=== PATIENT | male | born 1935 | race Caucasian/White ===

== ENCOUNTER 2018-02-07 09:59 | Emergency (ER) | payer MEDICARE, OTHER ==
[~2018-02-07] VITALS: Ht 180.3 cm; Wt 82.9 kg
[2018-02-07] MEDS ORDERED: lactulose 20gm/30ml cup PO ONE (11:05)
[2018-02-07] MEDS ORDERED: magnesium 2GM in 50ml NS 50 ML IV ONE ×2 (11:05→12:27)
[2018-02-07] MEDS ORDERED: potassium Cl 20 mEq SR tablet PO STA (11:05)
[2018-02-07] MEDS ORDERED: magnesium hydroxide 30ml (MOM) UD suspension PO ONE (11:05)
[2018-02-07] MEDS ORDERED: normal saline 1000ML IV soln IVB ONE (11:05)
[2018-02-07] MEDS ORDERED: lactulose 20gm/30ml cup ONE (11:17)
[2018-02-07] MEDS ORDERED: magnesium hydroxide 30ml (MOM) UD suspension ONE (11:18)
[2018-02-07] MEDS ORDERED: potassium Cl 20 mEq SR tablet ONE ×2 (11:18)
[2018-02-07] MEDS ORDERED: bisacodyl 5mg tablet.DR PO ONE (11:20)
[2018-02-07 11:45] LABS: BASOPHILS % (AUTO) 0.7 % (0-1); EOSINOPHILS # (AUTO) 0.2 X10'3 (0-0.9); EOSINOPHILS % (AUTO) 3.5 % (0-6); HEMATOCRIT 39.2 % (42.0-52.0); HEMOGLOBIN 13.3 g/dl (14.0-17.9); LYMPHOCYTES % (AUTO) 38.4 % (21-51); MEAN CORPUSCULAR HEMOGLOBIN 30.6 PG (27.0-31.0); MEAN CORPUSCULAR HGB CONC 34.1 % (33.0-36.5); MEAN CORPUSCULAR VOLUME 89.9 FL (78-98); MEAN PLATELET VOLUME 7.6 FL (7.4-10.4); MONOCYTES # (AUTO) 0.4 X10'3 (0-0.9); MONOCYTES % (AUTO) 7.1 % (2-12); NEUTROPHILS # (AUTO) 2.7 X10'3 (1.8-7.7); NEUTROPHILS % (AUTO) 50.3 % (42-75); PLATELET COUNT 219 X10'3 (140-440); RED BLOOD COUNT 4.36 X10'6 (4.70-6.10); RED CELL DISTRIBUTION WIDTH 14.8 % (11.5-14.5); WHITE BLOOD COUNT 5.3 X10'3 (4.5-11.0)
[2018-02-07 12:01] LABS: ALANINE AMINOTRANSFERASE 11 U/L (12-78); ALBUMIN 3.6 G/DL (3.4-5.0); ALBUMIN/GLOBULIN RATIO 1.1 (1.1-1.5); ALKALINE PHOSPHATASE 57 IU/L (46-116); ANION GAP 7 (8-16); ASPARTATE AMINO TRANSFERASE 14 U/L (10-37); BILIRUBIN,TOTAL 0.5 MG/DL (0.1-1.0); BLOOD UREA NITROGEN 13 MG/DL (7-18); BUN/CREATININE RATIO 13.8 (5.4-32.0); CALCIUM 8.7 MG/DL (8.5-10.1); CHLORIDE 105 MMOL/L (99-107); CREATININE 0.94 MG/DL (0.60-1.10); GLUCOSE 125 MG/DL (70-104); POTASSIUM 4.6 MMOL/L (3.5-5.1); SODIUM 140 MMOL/L (135-145); TOTAL CARBON DIOXIDE 27.8 MMOL/L (24-32); TOTAL PROTEIN 6.9 G/DL (6.4-8.2); eGFR 76 ML/MIN
[2018-02-07 12:31] VITALS: BP 127/81
[2018-02-07] MEDS ORDERED: LACT10SO PO (14:34)
== END 2018-02-07 14:40 | disposition home or self-care (01) ==
LOC: ER 10:00
DX: K59.00 Constipation, unspecified (principal); J44.9 Chronic obstructive pulmonary disease, unspecified; E11.9 Type 2 diabetes mellitus without complications; G89.29 Other chronic pain; Z60.2 Problems related to living alone; Z88.5 Allergy status to narcotic agent; Z88.8 Allergy status to other drugs, medicaments and biological substances
CPT/HCPCS: 36415; 80053; 85025; 96365; 99284; J3475; J7030

== ENCOUNTER 2018-10-04 18:22 | Emergency (ER) | payer MEDICARE, OTHER ==
[~2018-10-04] VITALS: Ht 180.3 cm; Wt 70.0 kg
[~2018-10-04 18:22] MED LIST: LACT10SO PO
[2018-10-04] MEDS ORDERED: normal saline 1000ML IV soln IVB ONE ×2 (18:35→20:15)
[2018-10-04] MEDS ORDERED: LIDOcaine 2% 10ml TOPICAL JELLY (Urojet) MM ONE (18:35)
--- NOTE | 2018-10-04 19:07 | NUR ---
PA REQUESTED BLADDER TO BE SCANNED AFTER BARBA CATH INITIATIN, SCANNED 42 mL IN BLADDER, PA NOTIFIED
[2018-10-04 19:16] LABS: BASOPHILS # (AUTO) 0.1 X10'3 (0-0.2); BASOPHILS % (AUTO) 0.6 % (0-1); EOSINOPHILS # (AUTO) 0.1 X10'3 (0-0.9); EOSINOPHILS % (AUTO) 1.5 % (0-6); HEMATOCRIT 43.9 % (42.0-52.0); HEMOGLOBIN 14.4 g/dl (14.0-17.9); LYMPHOCYTES # (AUTO) 1.8 X10'3 (1.1-4.8); MEAN CORPUSCULAR HEMOGLOBIN 31.2 PG (27.0-31.0); MEAN CORPUSCULAR HGB CONC 32.8 % (33.0-36.5); MEAN CORPUSCULAR VOLUME 95.1 FL (78-98); MEAN PLATELET VOLUME 8.5 FL (7.4-10.4); MONOCYTES # (AUTO) 0.6 X10'3 (0-0.9); MONOCYTES % (AUTO) 7.1 % (2-12); NEUTROPHILS # (AUTO) 6.1 X10'3 (1.8-7.7); NEUTROPHILS % (AUTO) 69.8 % (42-75); PLATELET COUNT 253 X10'3 (140-440); RED BLOOD COUNT 4.62 X10'6 (4.70-6.10); RED CELL DISTRIBUTION WIDTH 13.6 % (11.5-14.5); WHITE BLOOD COUNT 8.7 X10'3 (4.5-11.0)
[2018-10-04 19:26] LABS: ALANINE AMINOTRANSFERASE 23 U/L (12-78); ALBUMIN 3.8 G/DL (3.4-5.0); ALBUMIN/GLOBULIN RATIO 1.1 (1.1-1.5); ALKALINE PHOSPHATASE 60 IU/L (46-116); ANION GAP 11 (8-16); ASPARTATE AMINO TRANSFERASE 16 U/L (10-37); BILIRUBIN,TOTAL 0.7 MG/DL (0.1-1.0); BLOOD UREA NITROGEN 16 MG/DL (7-18); BUN/CREATININE RATIO 16.8 (5.4-32.0); CHLORIDE 105 MMOL/L (99-107); CREATININE 0.95 MG/DL (0.60-1.10); GLUCOSE 129 MG/DL (70-104); POTASSIUM 4.2 MMOL/L (3.5-5.1); SODIUM 142 MMOL/L (135-145); TOTAL CARBON DIOXIDE 25.6 MMOL/L (24-32); TOTAL PROTEIN 7.2 G/DL (6.4-8.2); eGFR 75 ML/MIN
[2018-10-04 19:44] LABS: CLARITY,URINE CLEAR (Clear); COLOR,URINE YELLOW (Yellow); GLUCOSE, URINE NEGATIVE (Neg); KETONES,URINE TRACE mg/dl (Neg); LEUKOCYTE ESTERASE ,URINE NEGATIVE (Neg); NITRITES, URINE NEGATIVE (Neg); OCCULT BLOOD,URINE NEGATIVE (Neg); PH,URINE 5.5 (4.8-8.0); PROTEIN,URINE NEGATIVE (Neg)
[2018-10-04 19:46] LABS: UA COLLECTION TYPE FOLEY CATH
[2018-10-04] MEDS ORDERED: bisacodyl 10mg suppository rectal RC STA (20:14)
[2018-10-04] MEDS ORDERED: lactulose 20gm/30ml cup PO ONE (20:15)
[2018-10-04] MEDS ORDERED: FLO0.4C PO (20:16)
[2018-10-04 21:32] VITALS: BP 149/83
== END 2018-10-04 21:33 | disposition home or self-care (01) ==
LOC: ER 18:22
DX: R33.9 Retention of urine, unspecified (principal); K59.00 Constipation, unspecified; R60.0 Localized edema; J44.9 Chronic obstructive pulmonary disease, unspecified; E11.9 Type 2 diabetes mellitus without complications; G89.29 Other chronic pain; Z88.6 Allergy status to analgesic agent; Z88.5 Allergy status to narcotic agent; Z79.899 Other long term (current) drug therapy
CPT/HCPCS: 36415; 51702; 74018; 80053; 81003; 85025; 99284; J7030

== ENCOUNTER 2018-10-08 13:34 | Emergency (ER) | payer MEDICARE, OTHER ==
[~2018-10-08 13:34] MED LIST changes: +FLO0.4C PO
== END 2018-10-08 16:02 | disposition left against medical advice (07) ==
LOC: ER 13:34
DX: Z00.8 Encounter for other general examination (principal); Z53.21 Procedure and treatment not carried out due to patient leaving prior to being seen by health care provider

== ENCOUNTER 2018-10-14 15:42 | Inpatient (IN) | payer MEDICARE, OTHER ==
[~2018-10-14] VITALS: Ht 180.3 cm; Wt 81.8 kg
[2018-10-14 16:18] LABS: BASOPHILS % (AUTO) 0.2 % (0-1); EOSINOPHILS # (AUTO) 0.1 X10'3 (0-0.9); EOSINOPHILS % (AUTO) 1.1 % (0-6); HEMATOCRIT 40.2 % (42.0-52.0); HEMOGLOBIN 13.5 g/dl (14.0-17.9); LYMPHOCYTES # (AUTO) 1.5 X10'3 (1.1-4.8); LYMPHOCYTES % (AUTO) 14.6 % (21-51); MEAN CORPUSCULAR HEMOGLOBIN 32.1 PG (27.0-31.0); MEAN CORPUSCULAR HGB CONC 33.6 % (33.0-36.5); MEAN CORPUSCULAR VOLUME 95.6 FL (78-98); MEAN PLATELET VOLUME 7.7 FL (7.4-10.4); MONOCYTES # (AUTO) 0.9 X10'3 (0-0.9); MONOCYTES % (AUTO) 8.7 % (2-12); NEUTROPHILS # (AUTO) 7.9 X10'3 (1.8-7.7); NEUTROPHILS % (AUTO) 75.4 % (42-75); PLATELET COUNT 213 X10'3 (140-440); RED BLOOD COUNT 4.21 X10'6 (4.70-6.10); RED CELL DISTRIBUTION WIDTH 14.7 % (11.5-14.5); WHITE BLOOD COUNT 10.5 X10'3 (4.5-11.0)
[2018-10-14 16:34] LABS: ALANINE AMINOTRANSFERASE 12 U/L (12-78); ALBUMIN 3.6 G/DL (3.4-5.0); ALBUMIN/GLOBULIN RATIO 1.1 (1.1-1.5); ALKALINE PHOSPHATASE 54 IU/L (46-116); ANION GAP 10 (8-16); ASPARTATE AMINO TRANSFERASE 20 U/L (10-37); BILIRUBIN,TOTAL 1.1 MG/DL (0.1-1.0); BLOOD UREA NITROGEN 13 MG/DL (7-18); BUN/CREATININE RATIO 12.6 (5.4-32.0); CALCIUM 8.3 MG/DL (8.5-10.1); CHLORIDE 101 MMOL/L (99-107); CREATININE 1.03 MG/DL (0.60-1.10); GLUCOSE 133 MG/DL (70-104); POTASSIUM 3.6 MMOL/L (3.5-5.1); SODIUM 139 MMOL/L (135-145); TOTAL CARBON DIOXIDE 27.7 MMOL/L (24-32); TOTAL PROTEIN 6.9 G/DL (6.4-8.2); eGFR 69 ML/MIN
[2018-10-14 16:35] LABS: INR 1.1 INR; PARTIAL THROMBOPLASTIN TIME 31 SECONDS (22-32); PROTHROMBIN TIME 11.2 SECONDS (9.0-12.0)
[2018-10-14] MEDS ORDERED: ipratropium/albuterol 3ml nebule NEB ONE (17:10)
[2018-10-14] MEDS ORDERED: CefTRIAXone 2gm/D5W 50ml 50 ML IV ONE (17:10)
[2018-10-14] MEDS ORDERED: magnesium 2GM in 50ml NS 50 ML IV PRN (17:40)
[2018-10-14] MEDS ORDERED: bisacodyl 10mg suppository rectal RC PRN (17:40)
[2018-10-14] MEDS ORDERED: potassium Cl 20 mEq SR tablet PO PRN ×2 (17:40)
[2018-10-14] MEDS ORDERED: ondansetron/PF 4mg/2ml inj IV PRN (17:40)
[2018-10-14] MEDS ORDERED: mag hydrox/Alum hydrox/simeth 30ml oral suspension PO PRN (17:40)
[2018-10-14] MEDS ORDERED: magnesium 4gm in 100ml NS 100 ML IV PRN (17:40)
[2018-10-14] MEDS ORDERED: potassium Cl 40MEQ/NS 500ml 500 ML IV PRN ×2 (17:40)
[2018-10-14] MEDS ORDERED: magnesium hydroxide 30ml (MOM) UD suspension PO PRN (17:40)
[2018-10-14] MEDS: K and/or MAG REPLACEMENT MC SCH (17:40)
[2018-10-14] MEDS ORDERED: GABA-530 PO (17:44)
[2018-10-14] MEDS ORDERED: CARB1TAB23 PO ×2 (17:44)
[2018-10-14] MEDS ORDERED: CHOL100046 PO (17:44)
[2018-10-14] MEDS ORDERED: ASPI-1264 PO (17:44)
[2018-10-14] MEDS ORDERED: FOLI0.4T2 PO (17:44)
[2018-10-14] MEDS ORDERED: FLO0.4C PO (17:44)
[2018-10-14] MEDS ORDERED: METF500T PO (17:44)
[2018-10-14] MEDS ORDERED: OMEP40CA37 PO (17:44)
[2018-10-14] MEDS ORDERED: insulin Lispro (HumaLOG) vial - multi-dose SQ SCH (17:50)
[2018-10-14] MEDS ORDERED: glucagon, human recombinant 1mg kit SUBCUT PRN (17:50)
[2018-10-14] MEDS ORDERED: MESSAGE TO PHARMACY PO ONE (17:50)
[2018-10-14] MEDS ORDERED: dextrose 50%-water 50ml dispensing syringe IV PRN ×2 (17:50)
[2018-10-14] MEDS ORDERED: dextrose ORAL solution 15 GM/59 ML bottle PO PRN ×2 (17:50)
[2018-10-14] MEDS: ipratropium/albuterol 3ml nebule NEB SCH ×2 (19:01→23:08)
[2018-10-14 19:24] LABS: HEMOGLOBIN A1C 6.6 % (4.5-6.2)
[2018-10-14] MEDS: metroNIDAZOLE-Flagyl 500mg/NS 100 ML IV SCH (19:37)
[2018-10-14] MEDS: docusate sod 100mg capsule PO SCH (20:00)
--- NOTE | 2018-10-14 20:12 | NUR ---
GOLD RING REMOVED FROM LEFT 4TH FINGER AND GIVEN TO SON DELIA
[2018-10-14] MEDS: levoFLOXACIN-Levaquin 750MG/D5 150 ML IV SCH (20:15)
[2018-10-14] MEDS: normal saline 1000ml 1,000 ML IV SCH (20:21)
[2018-10-14] MEDS ORDERED: normal saline 500ml IV soln 500 ML IV ONE (20:25)
--- NOTE | 2018-10-14 21:00 | NUR ---
PT SBP TRENDING DOWNWARD. Hospitalist notified. NS 500 mg fluid bolus and NS 75 ML maintenance.
[2018-10-14] MEDS ORDERED: normal saline 1000ml 1,000 ML IVB ONE (21:28)
--- NOTE | 2018-10-14 21:32 | NUR ---
AFTER NS 500 ML BOLUS PT SBP 89. HOSP NOTIFIED. NS 1 L BOLUS ORDERED.
[2018-10-15] MEDS: gabapentin 100mg capsule PO SCH ×3 (00:27→20:00)
[2018-10-15] MEDS: tamsulosin 0.4mg capsule PO SCH ×2 (00:27→20:00)
[2018-10-15] MEDS: aspirin 325mg tablet PO SCH ×2 (00:27→20:00)
[2018-10-15] MEDS: metroNIDAZOLE-Flagyl 500mg/NS 100 ML IV SCH ×2 (00:28→07:48)
[2018-10-15] MEDS: diatr meglu/diatrizoate 30ml oral sol.-(3 dose) bottle PO SCH ×2 (00:28→07:48)
[2018-10-15] MEDS: carbidoba-levodopa 25-100mg tablet PO SCH ×4 (00:28→20:01)
--- NOTE | 2018-10-15 02:07 | NUR ---
Bladder scan of 750. Pt was able to void 150 ml in urinal. Pt did not wish to have an indwelling catheter for retention but consented to straight cath. Catheter went in easily with no resistence. Catheter volume 500 ml. Post void Bladder scan 15 ml.
[2018-10-15 02:29] LABS: CLARITY,URINE CLEAR (Clear); COLOR,URINE AMBER (Yellow); GLUCOSE, URINE NEGATIVE (Neg); KETONES,URINE TRACE mg/dl (Neg); LEUKOCYTE ESTERASE ,URINE TRACE (Neg); NITRITES, URINE NEGATIVE (Neg); OCCULT BLOOD,URINE NEGATIVE (Neg); PH,URINE 5.5 (4.8-8.0); PROTEIN,URINE NEGATIVE (Neg); UROBILINOGEN,URINE 0.2 E.U/dL (0.2-1.0)
[2018-10-15 02:31] LABS: UA COLLECTION TYPE URINAL
[2018-10-15 02:39] LABS: BACTERIA,URINE FEW /HPF (Neg); MUCUS STRANDS MANY /LPF (Neg); RBC,URINE 0-2 /HPF (0-2); SQUAMOUS EPITHELIAL CELL,UR FEW /LPF (FEW)
[2018-10-15] MEDS: ipratropium/albuterol 3ml nebule NEB SCH ×6 (03:00→23:30)
--- NOTE | 2018-10-15 03:59 | NUR ---
PT REFUSED 0300 SVN TREATMENT
[2018-10-15 05:04] LABS: ALANINE AMINOTRANSFERASE 8 U/L (12-78); ALBUMIN 2.6 G/DL (3.4-5.0); ALBUMIN/GLOBULIN RATIO 0.9 (1.1-1.5); ALKALINE PHOSPHATASE 43 IU/L (46-116); ANION GAP 10 (8-16); ASPARTATE AMINO TRANSFERASE 16 U/L (10-37); BILIRUBIN,TOTAL 0.8 MG/DL (0.1-1.0); BLOOD UREA NITROGEN 11 MG/DL (7-18); BUN/CREATININE RATIO 14.7 (5.4-32.0); CALCIUM 7.5 MG/DL (8.5-10.1); CHLORIDE 104 MMOL/L (99-107); CREATININE 0.75 MG/DL (0.60-1.10); GLUCOSE 116 MG/DL (70-104); POTASSIUM 3.6 MMOL/L (3.5-5.1); SODIUM 139 MMOL/L (135-145); TOTAL CARBON DIOXIDE 25.5 MMOL/L (24-32); TOTAL PROTEIN 5.6 G/DL (6.4-8.2); eGFR > 90 ML/MIN
[2018-10-15 05:07] LABS: MAGNESIUM 1.3 MG/DL (1.5-2.4)
[2018-10-15 05:11] LABS: BASOPHILS % (AUTO) 0.2 % (0-1); EOSINOPHILS % (AUTO) 0.1 % (0-6); HEMATOCRIT 35.1 % (42.0-52.0); HEMOGLOBIN 11.9 g/dl (14.0-17.9); LYMPHOCYTES # (AUTO) 1.1 X10'3 (1.1-4.8); LYMPHOCYTES % (AUTO) 15.1 % (21-51); MEAN CORPUSCULAR HGB CONC 33.9 % (33.0-36.5); MEAN CORPUSCULAR VOLUME 94.3 FL (78-98); MEAN PLATELET VOLUME 7.9 FL (7.4-10.4); MONOCYTES # (AUTO) 0.6 X10'3 (0-0.9); MONOCYTES % (AUTO) 8.4 % (2-12); NEUTROPHILS # (AUTO) 5.4 X10'3 (1.8-7.7); NEUTROPHILS % (AUTO) 76.2 % (42-75); PLATELET COUNT 161 X10'3 (140-440); RED BLOOD COUNT 3.72 X10'6 (4.70-6.10); RED CELL DISTRIBUTION WIDTH 14.4 % (11.5-14.5); WHITE BLOOD COUNT 7.1 X10'3 (4.5-11.0)
--- NOTE | 2018-10-15 07:41 | NUR ---
SPOKE TO [place], CT, NEED TO GIVE GATROVIEW AND HAVE 3RD DOSE RETIMED.
[2018-10-15] MEDS: pantoprazole 40mg Tablet.DR PO SCH ×2 (07:48→11:27)
--- NOTE | 2018-10-15 07:54 | NUR ---
PT KNOWS GOING TO A CT SCAN SOON, AND HAS A ROOM UPSTAIRS.
[2018-10-15] MEDS ORDERED: non-formulary drug (Omeprazole (Prilosec) 1 CAP) PO SCH (08:00)
[2018-10-15] MEDS: K and/or MAG REPLACEMENT MC SCH (08:00)
[2018-10-15] MEDS: normal saline 1000ml 1,000 ML IV SCH (09:41)
[2018-10-15 10:00] VITALS: BP 85/49
[2018-10-15] MEDS: vitamin D (cholecalciferol) 1,000 unit tablet PO SCH (11:23)
[2018-10-15] MEDS: docusate sod 100mg capsule PO SCH ×2 (11:27→20:00)
[2018-10-15] MEDS: levoFLOXACIN-Levaquin 750MG/D5 150 ML IV SCH (11:28)
[2018-10-15] MEDS: folic acid 0.4mg tablet PO SCH (11:28)
[2018-10-15] MEDS: enoxaparin 40mg/0.4ml syringe SUBCUT SCH (15:56)
[2018-10-15] MEDS: metroNIDAZOLE 500mg tablet PO SCH (17:46)
[2018-10-15] MEDS: magnesium Cl slow-release 64mg tablet PO PRN (17:46)
[2018-10-15 18:30] VITALS: BP 140/84
[2018-10-15] MEDS: Potassium Cl inj 20 MEQ in normal saline 1000ml 1,000 ML IV SCH (20:01)
[2018-10-15 22:00] VITALS: BP 100/54
[2018-10-16] MEDS: metroNIDAZOLE 500mg tablet PO SCH ×2 (00:41→08:59)
[2018-10-16] MEDS: magnesium Cl slow-release 64mg tablet PO PRN (00:41)
[2018-10-16] MEDS: ipratropium/albuterol 3ml nebule NEB SCH ×6 (03:00→23:31)
[2018-10-16 06:00] VITALS: BP 158/83
[2018-10-16 07:03] LABS: ALANINE AMINOTRANSFERASE 6 U/L (12-78); ALBUMIN 2.8 G/DL (3.4-5.0); ALBUMIN/GLOBULIN RATIO 0.9 (1.1-1.5); ALKALINE PHOSPHATASE 47 IU/L (46-116); ANION GAP 10 (8-16); ASPARTATE AMINO TRANSFERASE 19 U/L (10-37); BILIRUBIN,TOTAL 0.6 MG/DL (0.1-1.0); BLOOD UREA NITROGEN 9 MG/DL (7-18); BUN/CREATININE RATIO 10.1 (5.4-32.0); CHLORIDE 107 MMOL/L (99-107); CREATININE 0.89 MG/DL (0.60-1.10); GLUCOSE 123 MG/DL (70-104); MAGNESIUM 1.5 MG/DL (1.5-2.4); POTASSIUM 3.8 MMOL/L (3.5-5.1); SODIUM 140 MMOL/L (135-145); TOTAL CARBON DIOXIDE 22.6 MMOL/L (24-32); eGFR 81 ML/MIN
[2018-10-16] MEDS: K and/or MAG REPLACEMENT MC SCH (08:00)
[2018-10-16] MEDS: docusate sod 100mg capsule PO SCH ×2 (08:00→19:38)
[2018-10-16] MEDS: Potassium Cl inj 20 MEQ in normal saline 1000ml 1,000 ML IV SCH (08:53)
[2018-10-16] MEDS: carbidoba-levodopa 25-100mg tablet PO SCH ×3 (08:59→19:39)
[2018-10-16] MEDS: vitamin D (cholecalciferol) 1,000 unit tablet PO SCH (08:59)
[2018-10-16] MEDS: gabapentin 100mg capsule PO SCH ×2 (08:59→19:38)
[2018-10-16] MEDS: folic acid 0.4mg tablet PO SCH (08:59)
[2018-10-16] MEDS: enoxaparin 40mg/0.4ml syringe SUBCUT SCH (09:00)
[2018-10-16 10:00] VITALS: BP 94/54
[2018-10-16] MEDS: diatr meglu/diatrizoate 30ml oral sol.-(3 dose) bottle PO SCH (11:35)
[2018-10-16] MEDS: levoFLOXACIN 750MG TABLET PO SCH (11:38)
[2018-10-16 15:30] VITALS: BP_SYST 109; BP_SYST 113; BP_SYST 145; BP_DIAS 69; BP_DIAS 72; BP_DIAS 97
[2018-10-16 18:00] VITALS: BP 122/68
[2018-10-16] MEDS: tamsulosin 0.4mg capsule PO SCH (19:38)
[2018-10-16] MEDS: aspirin 325mg tablet PO SCH (19:38)
[2018-10-17] MEDS: ipratropium/albuterol 3ml nebule NEB SCH ×6 (03:11→23:00)
[2018-10-17 06:00] VITALS: BP 123/74
[2018-10-17 06:09] LABS: ALANINE AMINOTRANSFERASE 8 U/L (12-78); ALBUMIN 2.6 G/DL (3.4-5.0); ALBUMIN/GLOBULIN RATIO 0.9 (1.1-1.5); ALKALINE PHOSPHATASE 40 IU/L (46-116); ANION GAP 12 (8-16); ASPARTATE AMINO TRANSFERASE 14 U/L (10-37); BILIRUBIN,TOTAL 0.5 MG/DL (0.1-1.0); BLOOD UREA NITROGEN 8 MG/DL (7-18); BUN/CREATININE RATIO 8.5 (5.4-32.0); CALCIUM 7.9 MG/DL (8.5-10.1); CHLORIDE 106 MMOL/L (99-107); CREATININE 0.94 MG/DL (0.60-1.10); GLUCOSE 131 MG/DL (70-104); MAGNESIUM 1.5 MG/DL (1.5-2.4); POTASSIUM 3.7 MMOL/L (3.5-5.1); SODIUM 142 MMOL/L (135-145); TOTAL CARBON DIOXIDE 24.1 MMOL/L (24-32); TOTAL PROTEIN 5.6 G/DL (6.4-8.2); eGFR 76 ML/MIN
[2018-10-17] MEDS: K and/or MAG REPLACEMENT MC SCH (08:00)
[2018-10-17] MEDS: enoxaparin 40mg/0.4ml syringe SUBCUT SCH (09:08)
[2018-10-17] MEDS: vitamin D (cholecalciferol) 1,000 unit tablet PO SCH (09:09)
[2018-10-17] MEDS: gabapentin 100mg capsule PO SCH (09:09)
[2018-10-17] MEDS: folic acid 0.4mg tablet PO SCH (09:09)
[2018-10-17] MEDS: docusate sod 100mg capsule PO SCH ×2 (09:09→20:06)
[2018-10-17] MEDS: carbidoba-levodopa 25-100mg tablet PO SCH ×3 (09:15→20:06)
[2018-10-17 10:00] VITALS: BP 135/78
[2018-10-17] MEDS: levoFLOXACIN 750MG TABLET PO SCH (11:24)
[2018-10-17] MEDS: pantoprazole 40mg Tablet.DR PO SCH (11:25)
[2018-10-17 18:00] VITALS: BP 138/80
[2018-10-17] MEDS: aspirin 325mg tablet PO SCH (20:06)
[2018-10-17] MEDS: tamsulosin 0.4mg capsule PO SCH (20:07)
[2018-10-17] MEDS: gabapentin 300mg capsule PO SCH (20:07)
--- NOTE | 2018-10-17 21:01 | NUR ---
pt up in chair with 1 assist. watching TV
[2018-10-17 22:00] VITALS: BP 91/53
[2018-10-18] MEDS: ipratropium/albuterol 3ml nebule NEB SCH ×3 (03:48→11:00)
[2018-10-18 05:00] VITALS: BP 117/69
[2018-10-18 06:16] LABS: ALANINE AMINOTRANSFERASE 8 U/L (12-78); ALBUMIN 2.7 G/DL (3.4-5.0); ALBUMIN/GLOBULIN RATIO 0.9 (1.1-1.5); ALKALINE PHOSPHATASE 42 IU/L (46-116); ANION GAP 10 (8-16); ASPARTATE AMINO TRANSFERASE 17 U/L (10-37); BILIRUBIN,TOTAL 0.5 MG/DL (0.1-1.0); BLOOD UREA NITROGEN 9 MG/DL (7-18); BUN/CREATININE RATIO 11.3 (5.4-32.0); CALCIUM 8.2 MG/DL (8.5-10.1); CHLORIDE 107 MMOL/L (99-107); GLUCOSE 122 MG/DL (70-104); MAGNESIUM 1.5 MG/DL (1.5-2.4); POTASSIUM 3.9 MMOL/L (3.5-5.1); SODIUM 142 MMOL/L (135-145); TOTAL CARBON DIOXIDE 24.9 MMOL/L (24-32); TOTAL PROTEIN 5.7 G/DL (6.4-8.2); eGFR > 90 ML/MIN
--- NOTE | 2018-10-18 06:37 | NUR ---
reported to days. noted pt anticipates discharge to [facility] today. resting w/o distress.
--- NOTE | 2018-10-18 07:10 | NUR ---
Page to Dr. Fernandez MESSAGE: [phone] Leisa Man Critical 3.0 I will replace if there is an order Gaby [phone]
[2018-10-18] MEDS: pantoprazole 40mg Tablet.DR PO SCH (07:42)
[2018-10-18] MEDS: folic acid 0.4mg tablet PO SCH (07:42)
[2018-10-18] MEDS: carbidoba-levodopa 25-100mg tablet PO SCH ×2 (07:42→13:24)
[2018-10-18] MEDS: vitamin D (cholecalciferol) 1,000 unit tablet PO SCH (07:42)
[2018-10-18] MEDS: gabapentin 300mg capsule PO SCH (07:42)
[2018-10-18] MEDS: docusate sod 100mg capsule PO SCH (07:42)
[2018-10-18] MEDS: enoxaparin 40mg/0.4ml syringe SUBCUT SCH (07:43)
[2018-10-18] MEDS: K and/or MAG REPLACEMENT MC SCH (07:44)
[2018-10-18 11:00] VITALS: BP 92/51
--- NOTE | 2018-10-18 11:09 | NUR ---
Initial: Pt admit w/ PNA, COPD exacerbation, hx dementia. PO 100% carb controlled diet meeting needs. A1C <7. LBM 10/16 on colace w/ dulcolax PRN. No nutrition concerns at this time. Will continue to monitor. Rec: 1. continue carb controlled diet 2. wt per rx Addendum: 10/18/18 at [address] Amended: Links added.
[2018-10-18] MEDS: levoFLOXACIN 750MG TABLET PO SCH (13:24)
--- NOTE | 2018-10-18 14:15 | NUR ---
Report called to Mike August.
--- NOTE | 2018-10-18 14:25 | NUR ---
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 IV taken out canulla intact. Plata left in for retention.
== END 2018-10-18 14:35 | DRG 190 ==
LOC: ER 15:43 → ED HOLD 17:39 → ORTHO 4S 10-15 08:50
PROVIDERS: ADMIT Internal Medicine; ATTEND Internal Medicine
DX: J44.0 Chronic obstructive pulmonary disease with (acute) lower respiratory infection (principal); J18.9 Pneumonia, unspecified organism; J44.1 Chronic obstructive pulmonary disease with (acute) exacerbation; E11.9 Type 2 diabetes mellitus without complications; G20 Parkinson's disease; G89.29 Other chronic pain; N40.1 Benign prostatic hyperplasia with lower urinary tract symptoms; R29.6 Repeated falls; F03.90 Unspecified dementia, unspecified severity, without behavioral disturbance, psychotic disturbance, mood disturbance, and anxiety; W18.39XA Other fall on same level, initial encounter; R29.810 Facial weakness; R33.8 Other retention of urine; M54.9 Dorsalgia, unspecified; R06.03 Acute respiratory distress; Z60.2 Problems related to living alone; Z91.81 History of falling; Z95.0 Presence of cardiac pacemaker; Z88.5 Allergy status to narcotic agent; Z79.899 Other long term (current) drug therapy; Z79.82 Long term (current) use of aspirin; Z87.891 Personal history of nicotine dependence; Y93.89 Activity, other specified; Y92.89 Other specified places as the place of occurrence of the external cause; Y99.8 Other external cause status
CPT/HCPCS: 36415; 70450; 71045; 71250; 72190; 74176; 80053; 81001; 82948; 83036; 83735; 84484; 85025; 85610; 85730; 87040; 87070; 87088; 92616; 93005; 94640; 94760; 97116; 97162; 97530; 99285; G0378; J0696; J1650; J1956; J3480; J3490; J7030; Q9963

== ENCOUNTER 2018-10-27 10:27 | Inpatient (IN) | payer MEDICARE, OTHER ==
[~2018-10-27] VITALS: Ht 180.3 cm; Wt 75.6 kg
[~2018-10-27 10:27] MED LIST changes: +ASPI-1264 PO; +CARB1TAB23 PO; +CHOL100046 PO; +FOLI0.4T2 PO; +GABA-530 PO; -LACT10SO PO; +METF500T PO; +OMEP40CA37 PO
--- NOTE | 2018-10-27 10:35 | NUR ---
PT WAS GIVEN 324 ASA BY EMS BEFORE ARRIVAL
--- NOTE | 2018-10-27 10:36 | NUR ---
BARBA CATHETER IN PLACE PROGRAM THERAPIST
[2018-10-27] MEDS ORDERED: dexamethasone sod phosphate 10mg/ml inj IV STA (12:27)
[2018-10-27] MEDS ORDERED: nitroGLYCERIN 0.4mg SUBLingual tab SL PRN ×2 (12:30→19:50)
[2018-10-27] MEDS ORDERED: aspirin 81mg tab.chew PO ONE (12:30)
[2018-10-27 12:33] LABS: BASOPHILS # (AUTO) 0.1 X10'3 (0-0.2); BASOPHILS % (AUTO) 0.5 % (0-1); EOSINOPHILS # (AUTO) 0.2 X10'3 (0-0.9); HEMATOCRIT 45.2 % (42.0-52.0); HEMOGLOBIN 14.9 g/dl (14.0-17.9); LYMPHOCYTES # (AUTO) 1.8 X10'3 (1.1-4.8); MEAN CORPUSCULAR HEMOGLOBIN 31.3 PG (27.0-31.0); MEAN CORPUSCULAR HGB CONC 32.9 g/dL (33.0-36.5); MEAN CORPUSCULAR VOLUME 95.2 FL (78-98); MEAN PLATELET VOLUME 8.1 FL (7.4-10.4); MONOCYTES # (AUTO) 0.6 X10'3 (0-0.9); NEUTROPHILS % (AUTO) 74.5 % (42-75); PLATELET COUNT 281 X10'3 (140-440); RED BLOOD COUNT 4.75 X10'6 (4.70-6.10); RED CELL DISTRIBUTION WIDTH 14.6 % (11.5-14.5); WHITE BLOOD COUNT 10.7 X10'3 (4.5-11.0)
[2018-10-27 12:44] LABS: CLARITY,URINE CLEAR (Clear); COLOR,URINE STRAW (Yellow); GLUCOSE, URINE NEGATIVE (Neg); KETONES,URINE NEGATIVE (Neg); LEUKOCYTE ESTERASE ,URINE NEGATIVE (Neg); NITRITES, URINE NEGATIVE (Neg); OCCULT BLOOD,URINE LARGE (Neg); PH,URINE 7.5 (4.8-8.0); PROTEIN,URINE NEGATIVE (Neg); UROBILINOGEN,URINE 0.2 E.U/dL (0.2-1.0)
[2018-10-27 12:49] LABS: UA COLLECTION TYPE FOLEY CATH
[2018-10-27 12:50] LABS: PARTIAL THROMBOPLASTIN TIME 28 SECONDS (22-32); PROTHROMBIN TIME 10.2 SECONDS (9.0-12.0)
[2018-10-27 12:59] LABS: BACTERIA,URINE NONE SEEN /HPF (Neg); MUCUS STRANDS NONE SEEN /LPF (Neg); SQUAMOUS EPITHELIAL CELL,UR NONE SEEN /LPF (FEW); WBC,URINE NONE SEEN /HPF (0-4)
[2018-10-27 13:05] LABS: ALANINE AMINOTRANSFERASE 24 U/L (12-78); ALBUMIN 3.6 G/DL (3.4-5.0); ALBUMIN/GLOBULIN RATIO 0.9 (1.1-1.5); ALKALINE PHOSPHATASE 57 IU/L (46-116); ANION GAP 8 (8-16); ASPARTATE AMINO TRANSFERASE 17 U/L (10-37); BILIRUBIN,TOTAL 0.4 MG/DL (0.1-1.0); BLOOD UREA NITROGEN 18 MG/DL (7-18); BUN/CREATININE RATIO 18.6 (5.4-32.0); CALCIUM 9.2 MG/DL (8.5-10.1); CHLORIDE 102 MMOL/L (99-107); CREATININE 0.97 MG/DL (0.60-1.10); GLUCOSE 134 MG/DL (70-104); SODIUM 138 MMOL/L (135-145); TOTAL CARBON DIOXIDE 27.7 MMOL/L (24-32); TOTAL PROTEIN 7.4 G/DL (6.4-8.2); eGFR 74 ML/MIN
[2018-10-27 13:13] LABS: MAGNESIUM 1.9 MG/DL (1.5-2.4)
[2018-10-27 13:15] LABS: POTASSIUM 4.7 MMOL/L (3.5-5.1)
[2018-10-27] MEDS ORDERED: BISA10SU60 RC (13:45)
[2018-10-27] MEDS ORDERED: GABA-532 PO (13:45)
[2018-10-27] MEDS ORDERED: LACTC PO (13:45)
[2018-10-27] MEDS ORDERED: HEPA1DIS11 SQ (13:45)
[2018-10-27] MEDS ORDERED: DOCU-20 PO (13:45)
[2018-10-27] MEDS ORDERED: ondansetron/PF 4mg/2ml inj IV PRN (14:25)
[2018-10-27] MEDS ORDERED: magnesium 2GM in 50ml NS 50 ML IV PRN (14:25)
[2018-10-27] MEDS ORDERED: potassium Cl 20 mEq SR tablet PO PRN ×2 (14:25)
[2018-10-27] MEDS ORDERED: mag hydrox/Alum hydrox/simeth 30ml oral suspension PO PRN (14:25)
[2018-10-27] MEDS ORDERED: potassium Cl 40MEQ/NS 500ml 500 ML IV PRN ×2 (14:25)
[2018-10-27] MEDS ORDERED: ipratropium/albuterol 3ml nebule NEB PRN (14:25)
[2018-10-27] MEDS ORDERED: magnesium 4gm in 100ml NS 100 ML IV PRN (14:25)
[2018-10-27] MEDS ORDERED: dextrose ORAL solution 15 GM/59 ML bottle PO PRN ×2 (14:25)
[2018-10-27] MEDS ORDERED: glucagon, human recombinant 1mg kit SUBCUT PRN (14:25)
[2018-10-27] MEDS ORDERED: MESSAGE TO PHARMACY PO ONE (14:25)
[2018-10-27] MEDS ORDERED: dextrose 50%-water 50ml dispensing syringe IV PRN ×2 (14:25)
[2018-10-27] MEDS ORDERED: docusate sod 100mg capsule PO PRN (14:25)
[2018-10-27] MEDS ORDERED: insulin Lispro (HumaLOG) vial - multi-dose SQ SCH (14:25)
[2018-10-27 15:29] LABS: HEMOGLOBIN A1C 6.6 % (4.5-6.2)
--- NOTE | 2018-10-27 16:18 | NUR ---
received report from felicity triana. awaiting patient arrival to room 345a.
--- NOTE | 2018-10-27 17:26 | NUR ---
received patient to room 345a via gurney accompanied by x1 staff. patient is alert and oriented, mechoopda. oriented patient to room and call light. bed is low and locked. side railsx2 up.
[2018-10-27 17:29] VITALS: BP 132/63
[2018-10-27 18:00] VITALS: BP 110/56
--- NOTE | 2018-10-27 18:30 | NUR ---
Received report from primary care nurse Layne DODD. Assumed patient care. Patient is awake and alert on room air visiting with his family. Call light and items of frequent use within reach. Will continue to monitor for changes.
--- NOTE | 2018-10-27 18:30 | NUR ---
Problems reprioritized. Patient report given, questions answered & plan of care reviewed with JU WILCOX.
[2018-10-27] MEDS: lactobacillus rhamnosus 10,000 MMU CELLS/CAPSULE PO SCH (19:17)
[2018-10-27] MEDS: carbidoba-levodopa 25-100mg tablet PO SCH (19:18)
[2018-10-27] MEDS: gabapentin 300mg capsule PO SCH (19:18)
[2018-10-27] MEDS: docusate sod 100mg capsule PO SCH (19:18)
[2018-10-27] MEDS ORDERED: heparin 10,000 units/1 ML INJ IV ONE (19:50)
[2018-10-27] MEDS ORDERED: traMADol 50MG tablet PO PRN (19:50)
[2018-10-27] MEDS ORDERED: metoprolol tartrate 1mg/ml inj IV PRN (19:50)
[2018-10-27] MEDS ORDERED: aminophylline 250mg/10ml inj. IV PRN (19:50)
[2018-10-27] MEDS ORDERED: regadenoson 0.4mg/5ml syringe IV PRN (19:50)
[2018-10-27] MEDS ORDERED: heparin 10,000 units/1 ML INJ IV PRN (19:50)
--- NOTE | 2018-10-27 19:51 | NUR ---
Notified MD of elevating troponins. MD Khan to consult gis analyst developer.
[2018-10-27 20:13] LABS: BASOPHILS % (AUTO) 0.1 % (0-1); EOSINOPHILS # (AUTO) 0.1 X10'3 (0-0.9); EOSINOPHILS % (AUTO) 1.6 % (0-6); HEMATOCRIT 42.8 % (42.0-52.0); HEMOGLOBIN 14.4 g/dl (14.0-17.9); LYMPHOCYTES # (AUTO) 0.6 X10'3 (1.1-4.8); LYMPHOCYTES % (AUTO) 7.6 % (21-51); MEAN CORPUSCULAR HEMOGLOBIN 31.7 PG (27.0-31.0); MEAN CORPUSCULAR HGB CONC 33.6 g/dL (33.0-36.5); MEAN CORPUSCULAR VOLUME 94.3 FL (78-98); MEAN PLATELET VOLUME 7.8 FL (7.4-10.4); MONOCYTES % (AUTO) 0.5 % (2-12); NEUTROPHILS # (AUTO) 7.5 X10'3 (1.8-7.7); NEUTROPHILS % (AUTO) 90.2 % (42-75); PLATELET COUNT 310 X10'3 (140-440); RED BLOOD COUNT 4.54 X10'6 (4.70-6.10); RED CELL DISTRIBUTION WIDTH 14.3 % (11.5-14.5); WHITE BLOOD COUNT 8.4 X10'3 (4.5-11.0)
[2018-10-27 20:30] LABS: PARTIAL THROMBOPLASTIN TIME 29 SECONDS (22-32); PROTHROMBIN TIME 10.4 SECONDS (9.0-12.0)
[2018-10-27] MEDS: heparin 25,000 UNIT/250ml bag 250 ML IV SCH (20:41)
[2018-10-27] MEDS: tamsulosin 0.4mg capsule PO SCH (20:41)
[2018-10-27] MEDS ORDERED: aspirin 325mg tablet PO SCH (21:00)
[2018-10-27] MEDS: insulin glargine (Lantus) pen - multi-dose SQ SCH (21:00)
[2018-10-28] VITALS (14 sets, daily range): BP systolic 81–142; BP diastolic 36–86
[2018-10-28 02:08] LABS: ALANINE AMINOTRANSFERASE 14 U/L (12-78); ALBUMIN 3.1 G/DL (3.4-5.0); ALBUMIN/GLOBULIN RATIO 0.9 (1.1-1.5); ALKALINE PHOSPHATASE 53 IU/L (46-116); ANION GAP 8 (8-16); ASPARTATE AMINO TRANSFERASE 13 U/L (10-37); BILIRUBIN,TOTAL 0.4 MG/DL (0.1-1.0); BLOOD UREA NITROGEN 24 MG/DL (7-18); CALCIUM 8.8 MG/DL (8.5-10.1); CHLORIDE 102 MMOL/L (99-107); GLUCOSE 173 MG/DL (70-104); MAGNESIUM 1.8 MG/DL (1.5-2.4); POTASSIUM 4.5 MMOL/L (3.5-5.1); SODIUM 138 MMOL/L (135-145); TOTAL CARBON DIOXIDE 28.1 MMOL/L (24-32); TOTAL PROTEIN 6.6 G/DL (6.4-8.2); eGFR 71 ML/MIN
[2018-10-28] MEDS: heparin 25,000 UNIT/250ml bag 250 ML IV SCH ×2 (02:17→09:35)
[2018-10-28 02:55] LABS: BASOPHILS % (AUTO) 0.2 % (0-1); EOSINOPHILS # (AUTO) 0.1 X10'3 (0-0.9); EOSINOPHILS % (AUTO) 1.3 % (0-6); HEMATOCRIT 40.7 % (42.0-52.0); HEMOGLOBIN 13.6 g/dl (14.0-17.9); LYMPHOCYTES # (AUTO) 1.1 X10'3 (1.1-4.8); MEAN CORPUSCULAR HEMOGLOBIN 31.7 PG (27.0-31.0); MEAN CORPUSCULAR HGB CONC 33.4 g/dL (33.0-36.5); MEAN CORPUSCULAR VOLUME 94.8 FL (78-98); MEAN PLATELET VOLUME 8.5 FL (7.4-10.4); MONOCYTES # (AUTO) 0.3 X10'3 (0-0.9); NEUTROPHILS # (AUTO) 7.9 X10'3 (1.8-7.7); NEUTROPHILS % (AUTO) 83.5 % (42-75); PLATELET COUNT 317 X10'3 (140-440); RED BLOOD COUNT 4.29 X10'6 (4.70-6.10); RED CELL DISTRIBUTION WIDTH 14.5 % (11.5-14.5); WHITE BLOOD COUNT 9.5 X10'3 (4.5-11.0)
--- NOTE | 2018-10-28 06:39 | NUR ---
Gave report to Neeta DODD. pt is awake and alert on RA, in no apparent distress, call light and items of freq use within reach.
--- NOTE | 2018-10-28 06:44 | NUR ---
Patient in room NAVID 345. I have received report from JERI DODD and had the opportunity to ask questions and assume patient care.
[2018-10-28] MEDS: gabapentin 300mg capsule PO SCH ×2 (07:29→19:32)
[2018-10-28] MEDS: vitamin D (cholecalciferol) 1,000 unit tablet PO SCH (07:29)
[2018-10-28] MEDS: pantoprazole 40mg Tablet.DR PO SCH (07:29)
[2018-10-28] MEDS: folic acid 0.4mg tablet PO SCH (07:29)
[2018-10-28] MEDS: docusate sod 100mg capsule PO SCH ×2 (07:29→19:32)
[2018-10-28] MEDS: lactobacillus rhamnosus 10,000 MMU CELLS/CAPSULE PO SCH ×2 (07:30→19:32)
[2018-10-28] MEDS: carbidoba-levodopa 25-100mg tablet PO SCH ×3 (07:30→19:32)
[2018-10-28] MEDS: K and/or MAG REPLACEMENT MC SCH (08:00)
[2018-10-28] MEDS ORDERED: enoxaparin 40mg/0.4ml syringe SQ SCH (08:00)
--- NOTE | 2018-10-28 10:15 | NUR ---
DM consult: Patient's A1c is 6.6; DM ed not warranted at this time. Will continue to follow. Addendum: 10/28/18 at [address] Amended: Links added.
[2018-10-28] MEDS ORDERED: normal saline 1000ml 1,000 ML IV SCH (12:55)
[2018-10-28] MEDS ORDERED: aminophylline inj. 10 ML IV ONE (13:47)
[2018-10-28] MEDS ORDERED: regadenoson 0.4mg/5ml syringe IV ONE (13:47)
--- NOTE | 2018-10-28 18:23 | NUR ---
patient went for lexiscan returned to floor in stable condition. seen by Dr werner and Dr mahajan. See results of lexiscan. patient recommenced on HH/CC diet. shannon at bedside. report given to Nadeen DODD
--- NOTE | 2018-10-28 18:30 | NUR ---
Received report from Neeta DODD. Assumed patient care. Patient is awake and alert on room air. In no apparent distress. Tabs alarms on and audible. Call light and items of frequent use within reach. Will continue to monitor for changes.
[2018-10-28] MEDS: tamsulosin 0.4mg capsule PO SCH (19:32)
[2018-10-28] MEDS: carVEDilol 3.125mg tablet PO SCH (19:33)
[2018-10-28] MEDS: insulin glargine (Lantus) pen - multi-dose SQ SCH (21:00)
[2018-10-29] VITALS: BP 100/56
[2018-10-29 05:16] LABS: BASOPHILS # (AUTO) 0.1 X10'3 (0-0.2); BASOPHILS % (AUTO) 0.8 % (0-1); EOSINOPHILS # (AUTO) 0.2 X10'3 (0-0.9); EOSINOPHILS % (AUTO) 2.6 % (0-6); HEMOGLOBIN 13.3 g/dl (14.0-17.9); LYMPHOCYTES # (AUTO) 2.4 X10'3 (1.1-4.8); LYMPHOCYTES % (AUTO) 36.5 % (21-51); MEAN CORPUSCULAR HEMOGLOBIN 31.5 PG (27.0-31.0); MEAN CORPUSCULAR HGB CONC 33.3 g/dL (33.0-36.5); MEAN CORPUSCULAR VOLUME 94.7 FL (78-98); MONOCYTES # (AUTO) 0.5 X10'3 (0-0.9); MONOCYTES % (AUTO) 7.4 % (2-12); NEUTROPHILS # (AUTO) 3.5 X10'3 (1.8-7.7); NEUTROPHILS % (AUTO) 52.7 % (42-75); PLATELET COUNT 272 X10'3 (140-440); RED BLOOD COUNT 4.23 X10'6 (4.70-6.10); RED CELL DISTRIBUTION WIDTH 14.8 % (11.5-14.5); WHITE BLOOD COUNT 6.7 X10'3 (4.5-11.0)
[2018-10-29 05:29] LABS: ALANINE AMINOTRANSFERASE 9 U/L (12-78); ALBUMIN 3.2 G/DL (3.4-5.0); ALKALINE PHOSPHATASE 52 IU/L (46-116); ANION GAP 9 (8-16); ASPARTATE AMINO TRANSFERASE 14 U/L (10-37); BILIRUBIN,TOTAL 0.7 MG/DL (0.1-1.0); BLOOD UREA NITROGEN 21 MG/DL (7-18); BUN/CREATININE RATIO 25.6 (5.4-32.0); CALCIUM 8.6 MG/DL (8.5-10.1); CHLORIDE 102 MMOL/L (99-107); CREATININE 0.82 MG/DL (0.60-1.10); GLUCOSE 119 MG/DL (70-104); MAGNESIUM 1.7 MG/DL (1.5-2.4); POTASSIUM 4.3 MMOL/L (3.5-5.1); SODIUM 138 MMOL/L (135-145); TOTAL PROTEIN 6.5 G/DL (6.4-8.2); eGFR 89 ML/MIN
--- NOTE | 2018-10-29 06:16 | NUR ---
Reported off to Neeta DODD. Patient is resting with relaxed and unlabored respirations on room air in no apparent distress, call light and items of freq use within reach.
--- NOTE | 2018-10-29 06:26 | NUR ---
Patient in room NAVID 345. I have received report from Nadeen DODD and had the opportunity to ask questions and assume patient care.
[2018-10-29 07:13] VITALS: BP 121/81
[2018-10-29] MEDS: lactobacillus rhamnosus 10,000 MMU CELLS/CAPSULE PO SCH (07:21)
[2018-10-29] MEDS: vitamin D (cholecalciferol) 1,000 unit tablet PO SCH (07:21)
[2018-10-29] MEDS: docusate sod 100mg capsule PO SCH (07:21)
[2018-10-29] MEDS: carVEDilol 3.125mg tablet PO SCH ×2 (07:21→09:37)
[2018-10-29] MEDS: carbidoba-levodopa 25-100mg tablet PO SCH ×3 (07:21→12:57)
[2018-10-29] MEDS: pantoprazole 40mg Tablet.DR PO SCH (07:21)
[2018-10-29] MEDS: folic acid 0.4mg tablet PO SCH (07:21)
[2018-10-29] MEDS: gabapentin 300mg capsule PO SCH ×2 (07:21→09:37)
[2018-10-29] MEDS: K and/or MAG REPLACEMENT MC SCH (08:00)
[2018-10-29] MEDS ORDERED: aspirin 81mg tab.chew PO SCH (08:30)
[2018-10-29 11:51] VITALS: BP 118/69
[2018-10-29] MEDS ORDERED: COR3.125T PO (12:50)
--- NOTE | 2018-10-29 14:07 | NUR ---
patient seen by Dr Fernandez is for discharge. was very uncoperative this am, unable to give meds, and patient very fixated on wanting to see his dog. Unable to reorientate patient. Dr Fernandez aware. [patient by noon appeared to be alot more clearer. was able to share year and month, orientated to self and aware that he was going back to [facility]. patient DC with [facility] via [employer] to [facility] 1400hrs. report called to Viry hodge RN. Appeared stable for transportation.
== END 2018-10-29 14:00 | DRG 311 ==
LOC: ER 10:27 → ED HOLD 14:25 → SUR 3N 17:14
PROVIDERS: ADMIT Family Medicine; ATTEND Family Medicine
PROC: 4A02XM4 Measurement of Cardiac Total Activity, External Approach (ICD-10-PCS; principal; 2018-10-28)
PROC: 3E033HZ Introduction of Radioactive Substance into Peripheral Vein, Percutaneous Approach (ICD-10-PCS; 2018-10-28)
DX: I24.9 Acute ischemic heart disease, unspecified (principal); R07.89 Other chest pain; G20 Parkinson's disease; I10 Essential (primary) hypertension; I25.10 Atherosclerotic heart disease of native coronary artery without angina pectoris; G89.29 Other chronic pain; E11.42 Type 2 diabetes mellitus with diabetic polyneuropathy; Z60.2 Problems related to living alone; J44.9 Chronic obstructive pulmonary disease, unspecified; M54.9 Dorsalgia, unspecified; K21.9 Gastro-esophageal reflux disease without esophagitis; Z88.6 Allergy status to analgesic agent; Z95.0 Presence of cardiac pacemaker; Z95.1 Presence of aortocoronary bypass graft; Z88.5 Allergy status to narcotic agent; Z79.899 Other long term (current) drug therapy; Z79.82 Long term (current) use of aspirin
CPT/HCPCS: 36415; 71045; 78452; 80053; 81001; 82948; 83036; 83735; 83880; 84484; 85025; 85610; 85730; 87070; 87502; 87503; 93005; 93017; 93306; 94667; 94760; 96374; 99285; A9500; G0378; J0280; J1100; J1644; J1815; J7030

== ENCOUNTER 2018-12-20 16:20 | Emergency (ER) | payer MEDICARE, OTHER ==
[~2018-12-20] VITALS: Ht 180.3 cm; Wt 81.8 kg
[~2018-12-20 16:20] MED LIST changes: +BISA10SU60 RC; +COR3.125T PO; +DOCU-20 PO; -GABA-530 PO; +GABA-532 PO; +HEPA1DIS11 SQ; +LACTC PO; -METF500T PO
[2018-12-20] MEDS ORDERED: normal saline 1000ML IV soln IVB ONE (16:40)
[2018-12-20 17:19] LABS: BASOPHILS % (AUTO) 0.5 % (0-1); EOSINOPHILS # (AUTO) 0.1 X10'3 (0-0.9); EOSINOPHILS % (AUTO) 1.6 % (0-6); HEMOGLOBIN 13.9 g/dl (14.0-17.9); LYMPHOCYTES # (AUTO) 1.8 X10'3 (1.1-4.8); LYMPHOCYTES % (AUTO) 32.2 % (21-51); MEAN CORPUSCULAR HEMOGLOBIN 31.3 PG (27.0-31.0); MEAN CORPUSCULAR HGB CONC 33.1 g/dL (33.0-36.5); MEAN CORPUSCULAR VOLUME 94.5 FL (78-98); MEAN PLATELET VOLUME 7.8 FL (7.4-10.4); MONOCYTES # (AUTO) 0.5 X10'3 (0-0.9); MONOCYTES % (AUTO) 9.1 % (2-12); NEUTROPHILS # (AUTO) 3.2 X10'3 (1.8-7.7); NEUTROPHILS % (AUTO) 56.6 % (42-75); PLATELET COUNT 202 X10'3 (140-440); RED BLOOD COUNT 4.44 X10'6 (4.70-6.10); RED CELL DISTRIBUTION WIDTH 14.5 % (11.5-14.5); WHITE BLOOD COUNT 5.6 X10'3 (4.5-11.0)
[2018-12-20 17:31] LABS: ALANINE AMINOTRANSFERASE 10 U/L (12-78); ALBUMIN 3.6 G/DL (3.4-5.0); ALBUMIN/GLOBULIN RATIO 1.2 (1.1-1.5); ALKALINE PHOSPHATASE 59 IU/L (46-116); ANION GAP 9 (8-16); ASPARTATE AMINO TRANSFERASE 13 U/L (10-37); BILIRUBIN,TOTAL 0.4 MG/DL (0.1-1.0); BLOOD UREA NITROGEN 15 MG/DL (7-18); BUN/CREATININE RATIO 14.4 (5.4-32.0); CALCIUM 8.9 MG/DL (8.5-10.1); CHLORIDE 105 MMOL/L (99-107); CREATININE 1.04 MG/DL (0.60-1.10); GLUCOSE 144 MG/DL (70-104); POTASSIUM 3.9 MMOL/L (3.5-5.1); SODIUM 143 MMOL/L (135-145); TOTAL CARBON DIOXIDE 29.2 MMOL/L (24-32); TOTAL PROTEIN 6.6 G/DL (6.4-8.2); eGFR 68 ML/MIN
[2018-12-20 17:37] LABS: MAGNESIUM 1.7 MG/DL (1.5-2.4)
[2018-12-20 19:03] VITALS: BP 108/68
== END 2018-12-20 19:50 | disposition home or self-care (01) ==
LOC: ER 16:21
DX: E86.0 Dehydration (principal); R55 Syncope and collapse; I25.10 Atherosclerotic heart disease of native coronary artery without angina pectoris; I10 Essential (primary) hypertension; I25.2 Old myocardial infarction; J44.9 Chronic obstructive pulmonary disease, unspecified; K21.9 Gastro-esophageal reflux disease without esophagitis; E11.9 Type 2 diabetes mellitus without complications; G89.29 Other chronic pain; G20 Parkinson's disease; F02.80 Dementia in other diseases classified elsewhere, unspecified severity, without behavioral disturbance, psychotic disturbance, mood disturbance, and anxiety; Z95.1 Presence of aortocoronary bypass graft; Z95.0 Presence of cardiac pacemaker; Z88.6 Allergy status to analgesic agent; Z88.5 Allergy status to narcotic agent; Z79.82 Long term (current) use of aspirin; Z79.899 Other long term (current) drug therapy
CPT/HCPCS: 36415; 71045; 80053; 83735; 83880; 84484; 85025; 93005; 96360; 99284; J7030

== ENCOUNTER 2018-12-25 10:16 | Day surgery (SDC) | payer MEDICARE, OTHER ==
[2018-12-25] VITALS (13 sets, daily range): BP systolic 102–135; BP diastolic 72–92
[~2018-12-25] VITALS: Ht 180.3 cm; Wt 79.7 kg
[2018-12-25] MEDS ORDERED: normal saline 1,000 ML IV SCH (10:40)
[2018-12-25] MEDS ORDERED: diphenhydrAMINE 25mg capsule PO PRN (10:40)
[2018-12-25] MEDS ORDERED: METF500T PO (11:00)
[2018-12-25] MEDS ORDERED: BISA-155 PO (11:00)
[2018-12-25] MEDS ORDERED: NITR0.4T51 SL (11:00)
[2018-12-25] MEDS ORDERED: midazolam 2 mg/2 ml injection ONE (11:16)
[2018-12-25] MEDS ORDERED: fentaNYL/PF 50MCG/1 ML 2ML syringe ONE (11:16)
[2018-12-25] MEDS ORDERED: iohexol 350MG/ML 100ml bottle IV ONE ×2 (11:17→12:17)
[2018-12-25] MEDS ORDERED: LIDOcaine 1% (10mg/ml)w/preservative injection 20ml MDV ONE (11:17)
[2018-12-25] MEDS ORDERED: iohexol 350 MG/ML 50ML vial IV ONE (11:17)
[2018-12-25 11:26] LABS: BASOPHILS % (AUTO) 0.6 % (0-1); EOSINOPHILS # (AUTO) 0.1 X10'3 (0-0.9); EOSINOPHILS % (AUTO) 1.6 % (0-6); HEMATOCRIT 43.3 % (42.0-52.0); HEMOGLOBIN 14.2 g/dl (14.0-17.9); LYMPHOCYTES # (AUTO) 1.9 X10'3 (1.1-4.8); LYMPHOCYTES % (AUTO) 34.6 % (21-51); MEAN CORPUSCULAR HGB CONC 32.8 g/dL (33.0-36.5); MEAN CORPUSCULAR VOLUME 94.5 FL (78-98); MEAN PLATELET VOLUME 7.8 FL (7.4-10.4); MONOCYTES # (AUTO) 0.4 X10'3 (0-0.9); MONOCYTES % (AUTO) 7.6 % (2-12); NEUTROPHILS # (AUTO) 3.1 X10'3 (1.8-7.7); NEUTROPHILS % (AUTO) 55.6 % (42-75); PLATELET COUNT 213 X10'3 (140-440); RED BLOOD COUNT 4.58 X10'6 (4.70-6.10); RED CELL DISTRIBUTION WIDTH 14.4 % (11.5-14.5); WHITE BLOOD COUNT 5.6 X10'3 (4.5-11.0)
[2018-12-25 11:36] LABS: ANION GAP 6 (8-16); BLOOD UREA NITROGEN 14 MG/DL (7-18); BUN/CREATININE RATIO 16.3 (5.4-32.0); CALCIUM 9.2 MG/DL (8.5-10.1); CHLORIDE 105 MMOL/L (99-107); CREATININE 0.86 MG/DL (0.60-1.10); GLUCOSE 112 MG/DL (70-104); MAGNESIUM 1.6 MG/DL (1.5-2.4); POTASSIUM 4.1 MMOL/L (3.5-5.1); SODIUM 140 MMOL/L (135-145); eGFR 85 ML/MIN
[2018-12-25 11:37] LABS: INR 1.1 INR; PROTHROMBIN TIME 10.7 SECONDS (9.0-12.0)
[2018-12-25] MEDS ORDERED: heparin 1,000unit/ml 10ml vial 10 ML ONE (12:26)
[2018-12-25] MEDS ORDERED: clopidogrel 300mg tablet ONE (12:50)
== END 2018-12-25 18:15 | disposition home or self-care (01) ==
LOC: SSTAY O 10:16
PROVIDERS: ATTEND Internal Medicine Cardiovascular Disease
DX: I25.119 Atherosclerotic heart disease of native coronary artery with unspecified angina pectoris (principal); I49.5 Sick sinus syndrome; E11.9 Type 2 diabetes mellitus without complications; K21.9 Gastro-esophageal reflux disease without esophagitis; K22.70 Barrett's esophagus without dysplasia; E78.5 Hyperlipidemia, unspecified; G20 Parkinson's disease; Z79.899 Other long term (current) drug therapy; Z95.5 Presence of coronary angioplasty implant and graft; Z98.890 Other specified postprocedural states; Z82.49 Family history of ischemic heart disease and other diseases of the circulatory system; Z79.82 Long term (current) use of aspirin; Z88.8 Allergy status to other drugs, medicaments and biological substances; Z88.6 Allergy status to analgesic agent
CPT/HCPCS: 36415; 80048; 82948; 83735; 85025; 85610; 93458; 99152; 99153; A6257; C1874; C9600; J1644; J2001; J2250; J3010; J7030; Q0163; Q9967; A4620; C1725; C1760; C1769; C1894

== ENCOUNTER 2019-03-12 12:40 | Emergency (ER) | payer MEDICARE, OTHER ==
[~2019-03-12] VITALS: Ht 180.3 cm; Wt 81.8 kg
[~2019-03-12 12:40] MED LIST changes: -ASPI-1264 PO; +BISA-155 PO; -BISA10SU60 RC; -COR3.125T PO; -DOCU-20 PO; -HEPA1DIS11 SQ; -LACTC PO; +METF500T PO; +NITR0.4T51 SL
[2019-03-12] MEDS ORDERED: aspirin 81mg tab.chew PO ONE (13:05)
[2019-03-12 13:39] LABS: ALBUMIN 2.9 G/DL (3.4-5.0); ALBUMIN/GLOBULIN RATIO 1.2 (1.1-1.5); ALKALINE PHOSPHATASE 46 IU/L (46-116); ANION GAP 5 (8-16); ASPARTATE AMINO TRANSFERASE 12 U/L (10-37); BILIRUBIN,TOTAL 0.8 MG/DL (0.1-1.0); BLOOD UREA NITROGEN 14 MG/DL (7-18); BUN/CREATININE RATIO 18.7 (5.4-32.0); CALCIUM 7.1 MG/DL (8.5-10.1); CHLORIDE 112 MMOL/L (99-107); CREATININE 0.75 MG/DL (0.60-1.10); GLUCOSE 105 MG/DL (70-104); POTASSIUM 3.4 MMOL/L (3.5-5.1); SODIUM 142 MMOL/L (135-145); TOTAL CARBON DIOXIDE 24.6 MMOL/L (24-32); TOTAL PROTEIN 5.3 G/DL (6.4-8.2); eGFR > 90 ML/MIN
[2019-03-12 13:45] LABS: BASOPHILS % (AUTO) 0.6 % (0-1); EOSINOPHILS # (AUTO) 0.1 X10'3 (0-0.9); EOSINOPHILS % (AUTO) 1.6 % (0-6); HEMATOCRIT 31.8 % (42.0-52.0); LYMPHOCYTES # (AUTO) 1.7 X10'3 (1.1-4.8); LYMPHOCYTES % (AUTO) 31.1 % (21-51); MAGNESIUM 1.4 MG/DL (1.5-2.4); MEAN CORPUSCULAR HEMOGLOBIN 32.2 PG (27.0-31.0); MEAN CORPUSCULAR HGB CONC 34.7 g/dL (33.0-36.5); MEAN CORPUSCULAR VOLUME 92.8 FL (78-98); MEAN PLATELET VOLUME 7.7 FL (7.4-10.4); MONOCYTES # (AUTO) 0.4 X10'3 (0-0.9); MONOCYTES % (AUTO) 7.2 % (2-12); NEUTROPHILS # (AUTO) 3.3 X10'3 (1.8-7.7); NEUTROPHILS % (AUTO) 59.5 % (42-75); PLATELET COUNT 168 X10'3 (140-440); RED BLOOD COUNT 3.43 X10'6 (4.70-6.10); RED CELL DISTRIBUTION WIDTH 14.6 % (11.5-14.5); WHITE BLOOD COUNT 5.6 X10'3 (4.5-11.0)
[2019-03-12 13:46] LABS: ALANINE AMINOTRANSFERASE < 6 U/L (12-78)
[2019-03-12 17:37] VITALS: BP 162/95
== END 2019-03-12 17:40 | disposition home or self-care (01) ==
LOC: ER 12:41
DX: R07.89 Other chest pain (principal); G20 Parkinson's disease; I25.10 Atherosclerotic heart disease of native coronary artery without angina pectoris; I10 Essential (primary) hypertension; I25.2 Old myocardial infarction; J44.9 Chronic obstructive pulmonary disease, unspecified; K21.9 Gastro-esophageal reflux disease without esophagitis; E11.9 Type 2 diabetes mellitus without complications; G89.29 Other chronic pain; Z98.890 Other specified postprocedural states; Z88.5 Allergy status to narcotic agent; Z88.6 Allergy status to analgesic agent; Z79.84 Long term (current) use of oral hypoglycemic drugs; Z79.899 Other long term (current) drug therapy; Z95.0 Presence of cardiac pacemaker
CPT/HCPCS: 36415; 71045; 80053; 83735; 83880; 84484; 85025; 93005; 99284

== ENCOUNTER 2019-04-15 18:45 | Emergency (ER) | payer MEDICARE, OTHER ==
[~2019-04-15] VITALS: Ht 180.3 cm; Wt 82.0 kg
[2019-04-15 19:37] LABS: BASOPHILS % (AUTO) 0.7 % (0-1); EOSINOPHILS # (AUTO) 0.1 X10'3 (0-0.9); EOSINOPHILS % (AUTO) 1.9 % (0-6); HEMATOCRIT 42.1 % (42.0-52.0); HEMOGLOBIN 14.3 g/dl (14.0-17.9); LYMPHOCYTES # (AUTO) 2.2 X10'3 (1.1-4.8); LYMPHOCYTES % (AUTO) 37.9 % (21-51); MEAN CORPUSCULAR HEMOGLOBIN 31.7 PG (27.0-31.0); MEAN CORPUSCULAR VOLUME 93.2 FL (78-98); MEAN PLATELET VOLUME 8.1 FL (7.4-10.4); MONOCYTES # (AUTO) 0.6 X10'3 (0-0.9); MONOCYTES % (AUTO) 9.5 % (2-12); NEUTROPHILS # (AUTO) 2.9 X10'3 (1.8-7.7); PLATELET COUNT 212 X10'3 (140-440); RED BLOOD COUNT 4.51 X10'6 (4.70-6.10); RED CELL DISTRIBUTION WIDTH 14.3 % (11.5-14.5); WHITE BLOOD COUNT 5.8 X10'3 (4.5-11.0)
[2019-04-15 19:51] LABS: ALANINE AMINOTRANSFERASE 17 U/L (12-78); ALBUMIN/GLOBULIN RATIO 1.3 (1.1-1.5); ALKALINE PHOSPHATASE 64 IU/L (46-116); ANION GAP 6 (8-16); ASPARTATE AMINO TRANSFERASE 14 U/L (10-37); BILIRUBIN,TOTAL 0.6 MG/DL (0.1-1.0); BLOOD UREA NITROGEN 19 MG/DL (7-18); BUN/CREATININE RATIO 18.4 (5.4-32.0); CALCIUM 8.9 MG/DL (8.5-10.1); CHLORIDE 104 MMOL/L (99-107); CREATININE 1.03 MG/DL (0.60-1.10); GLUCOSE 111 MG/DL (70-104); POTASSIUM 4.7 MMOL/L (3.5-5.1); SODIUM 140 MMOL/L (135-145); TOTAL CARBON DIOXIDE 29.9 MMOL/L (24-32); TOTAL PROTEIN 7.1 G/DL (6.4-8.2); eGFR 69 ML/MIN
[2019-04-15 20:00] LABS: PARTIAL THROMBOPLASTIN TIME 28 SECONDS (22-32)
[2019-04-15 20:54] LABS: CLARITY,URINE CLEAR (Clear); COLOR,URINE YELLOW (Yellow); GLUCOSE, URINE NEGATIVE (Neg); KETONES,URINE NEGATIVE (Neg); LEUKOCYTE ESTERASE ,URINE NEGATIVE (Neg); NITRITES, URINE NEGATIVE (Neg); OCCULT BLOOD,URINE NEGATIVE (Neg); PROTEIN,URINE NEGATIVE (Neg); UROBILINOGEN,URINE 0.2 E.U/dL (0.2-1.0)
[2019-04-15 20:57] LABS: UA COLLECTION TYPE CLN CATCH MIDSTREAM
--- NOTE | 2019-04-15 20:59 | NUR ---
ATTEMPTED TO CALL [facility], BUT NO AFTER HOURS NUMBER. ATTEMPTED TO CALL BUT NO ANSWER, NO OPTION TO LEAVE VM.
--- NOTE | 2019-04-15 21:41 | NUR ---
AFTER HOURS NURSING [phone]
--- NOTE | 2019-04-15 21:42 | NUR ---
RECEIVED REPORT FROM NURSE AT [facility]. PER NURSE, PT WAS C/O PAIN IN HIS BUTTOCKS AND LEGS AND WAS FEELING HOT. NURSE ALSO REPORTS THAT PT WAS HAVING HARD TIME WITH SPEECH.
[2019-04-15 21:52] VITALS: BP 130/74
== END 2019-04-15 22:28 | disposition home or self-care (01) ==
LOC: ER 18:45
DX: R53.1 Weakness (principal); K59.00 Constipation, unspecified; F03.90 Unspecified dementia, unspecified severity, without behavioral disturbance, psychotic disturbance, mood disturbance, and anxiety; G20 Parkinson's disease; I25.10 Atherosclerotic heart disease of native coronary artery without angina pectoris; I10 Essential (primary) hypertension; I25.2 Old myocardial infarction; J44.9 Chronic obstructive pulmonary disease, unspecified; K21.9 Gastro-esophageal reflux disease without esophagitis; E11.9 Type 2 diabetes mellitus without complications; G89.29 Other chronic pain; Z95.1 Presence of aortocoronary bypass graft; Z95.0 Presence of cardiac pacemaker; Z88.5 Allergy status to narcotic agent; Z88.6 Allergy status to analgesic agent; Z79.84 Long term (current) use of oral hypoglycemic drugs; Z79.899 Other long term (current) drug therapy
CPT/HCPCS: 36415; 70450; 71045; 80053; 81003; 84484; 85025; 85610; 85730; 93005; 99284

== ENCOUNTER 2019-05-26 17:53 | Inpatient (IN) | payer MEDICARE, OTHER ==
[~2019-05-26] VITALS: Ht 180.3 cm; Wt 81.8 kg
[~2019-05-26 17:53] MED LIST changes: +OMEP40CA13 PO; -OMEP40CA37 PO
[2019-05-26 18:51] LABS: BASOPHILS % (AUTO) 0.6 % (0-1); EOSINOPHILS # (AUTO) 0.1 X10'3 (0-0.9); EOSINOPHILS % (AUTO) 1.9 % (0-6); HEMATOCRIT 39.9 % (42.0-52.0); HEMOGLOBIN 13.5 g/dl (14.0-17.9); LYMPHOCYTES # (AUTO) 2.2 X10'3 (1.1-4.8); LYMPHOCYTES % (AUTO) 37.7 % (21-51); MEAN CORPUSCULAR HEMOGLOBIN 31.3 PG (27.0-31.0); MEAN CORPUSCULAR HGB CONC 33.8 g/dL (33.0-36.5); MEAN CORPUSCULAR VOLUME 92.6 FL (78-98); MEAN PLATELET VOLUME 8.3 FL (7.4-10.4); MONOCYTES # (AUTO) 0.5 X10'3 (0-0.9); MONOCYTES % (AUTO) 8.8 % (2-12); NEUTROPHILS # (AUTO) 2.9 X10'3 (1.8-7.7); PLATELET COUNT 196 X10'3 (140-440); RED BLOOD COUNT 4.31 X10'6 (4.70-6.10); RED CELL DISTRIBUTION WIDTH 14.5 % (11.5-14.5); WHITE BLOOD COUNT 5.7 X10'3 (4.5-11.0)
[2019-05-26 18:59] LABS: ALANINE AMINOTRANSFERASE 13 U/L (12-78); ALBUMIN 3.5 G/DL (3.4-5.0); ALBUMIN/GLOBULIN RATIO 1.3 (1.1-1.5); ALKALINE PHOSPHATASE 51 IU/L (46-116); ANION GAP 5 (8-16); ASPARTATE AMINO TRANSFERASE 14 U/L (10-37); BILIRUBIN,TOTAL 0.4 MG/DL (0.1-1.0); BLOOD UREA NITROGEN 16 MG/DL (7-18); BUN/CREATININE RATIO 15.7 (5.4-32.0); CALCIUM 8.1 MG/DL (8.5-10.1); CHLORIDE 109 MMOL/L (99-107); CREATININE 1.02 MG/DL (0.60-1.10); GLUCOSE 93 MG/DL (70-104); POTASSIUM 4.2 MMOL/L (3.5-5.1); SODIUM 143 MMOL/L (135-145); TOTAL PROTEIN 6.3 G/DL (6.4-8.2); eGFR 69 ML/MIN
[2019-05-26 19:03] LABS: TROPONIN I < 0.04 NG/ML (0.0-0.05)
[2019-05-26 19:28] LABS: CLARITY,URINE CLEAR (Clear); COLOR,URINE YELLOW (Yellow); GLUCOSE, URINE NEGATIVE (Neg); KETONES,URINE NEGATIVE (Neg); LEUKOCYTE ESTERASE ,URINE NEGATIVE (Neg); NITRITES, URINE NEGATIVE (Neg); OCCULT BLOOD,URINE NEGATIVE (Neg); PROTEIN,URINE NEGATIVE (Neg); UROBILINOGEN,URINE 0.2 E.U/dL (0.2-1.0)
[2019-05-26] MEDS ORDERED: CARB1TAB23 PO (19:37)
[2019-05-26] MEDS ORDERED: ATOR40TA PO (19:37)
[2019-05-26] MEDS ORDERED: ISOS30TA9 PO (19:37)
[2019-05-26] MEDS ORDERED: GABA-532 PO (19:37)
[2019-05-26] MEDS ORDERED: CHOL10002 PO (19:37)
[2019-05-26] MEDS ORDERED: CLOP75TA35 PO (19:37)
[2019-05-26] MEDS ORDERED: FOLI0.4T2 PO (19:37)
[2019-05-26] MEDS ORDERED: PANT-47 PO (19:37)
[2019-05-26] MEDS ORDERED: METF500T PO (19:37)
[2019-05-26] MEDS ORDERED: FLO0.4C PO (19:37)
[2019-05-26 19:52] LABS: UA COLLECTION TYPE VOIDED
--- NOTE | 2019-05-26 20:42 | NUR ---
I DID THE [employer] INTEROGATION, BUT IT JUST DOESN'T SEEM TO BE SENDING. SO I CALLED [facility] AND THEY ARE PAGING A TECH.
--- NOTE | 2019-05-26 20:53 | NUR ---
ZHEN HAD CALLED AND I WAS NOT ABLE TO FIELD THE CALL, I AM CALLING BACK NOW.
--- NOTE | 2019-05-26 21:21 | NUR ---
GAVE PATIENT SOME FOOD.
--- NOTE | 2019-05-26 21:21 | NUR ---
MEDJULIETA STATES ONLY THING SEEN WAS TODAYS INFO IT WAS INTEROGATED YESTERDAY. TIFFANI STATES HE IS AV PACED AND ALL IT SHOWS IS FREQUENT PVCS. I WILL NOTIFY AWAITING FAXED REPORT WELL.
--- NOTE | 2019-05-26 21:28 | NUR ---
TIFFANI ALSO STATED THAT IF HE IS HAVING SUCH FREQUENT PVCS HIS PACEMAKER MAY HAVE STOPPED FOR AN EXTENDED PERIOD OF TIME. DR NEWMAN AND DR AZUL BOTH INFORMED OF THESE FINDINGS.
[2019-05-26] MEDS ORDERED: mag hydrox/Alum hydrox/simeth 30ml oral suspension PO PRN (22:00)
[2019-05-26] MEDS ORDERED: magnesium hydroxide 30ml (MOM) UD suspension PO PRN (22:00)
[2019-05-26] MEDS ORDERED: ondansetron/PF 4mg/2ml inj IV PRN (22:00)
[2019-05-26] MEDS ORDERED: glucagon, human recombinant 1mg kit SUBCUT PRN (22:15)
[2019-05-26] MEDS ORDERED: dextrose 50%-water 50ml dispensing syringe IV PRN ×2 (22:15)
[2019-05-26] MEDS ORDERED: MESSAGE TO PHARMACY PO ONE (22:15)
[2019-05-26] MEDS ORDERED: dextrose ORAL solution 15 GM/59 ML bottle PO PRN ×2 (22:15)
[2019-05-26] MEDS ORDERED: insulin Lispro (HumaLOG) vial - multi-dose SQ SCH (22:15)
--- NOTE | 2019-05-27 00:22 | NUR ---
PT UP TO BS COMMODE TO VOID. TOOK OUT HIS DENTURE (UPPER ONLY HE HAS) AND PLACED THEM IN A DENTURE CUP. TUCKED HIM INTO BED, CALL LIGHT ON SIDERAIL AND SIDERAILS UP AND LIGHTS DIMMED AND HE IS GOING TO TRY TO SLEEP NOW.
[2019-05-27] MEDS ORDERED: ISOS30TA6 PO (00:58)
--- NOTE | 2019-05-27 02:33 | NUR ---
he was getting help with showering and putting clothes on but he can't afford it anymore or there was something that happened that they can't see him anymore Addendum: 05/27/19 at 0252 by Marjan Rondon RN Amended: Links added.
--- NOTE | 2019-05-27 03:03 | NUR ---
He wants staff to call the apartment he is living at in the morning to check on his dog, Santi.
[2019-05-27] MEDS ORDERED: traMADol 50MG tablet PO PRN (03:45)
[2019-05-27 06:00] VITALS: BP 154/82
--- NOTE | 2019-05-27 06:00 | NUR ---
Problems reprioritized. Patient report given, questions answered & plan of care reviewed with JU Beth.
--- NOTE | 2019-05-27 06:20 | NUR ---
Patient in room ORTHO 4009. I have received report from and had the opportunity to ask questions and assume patient care JU Davis.
[2019-05-27 08:11] LABS: BASOPHILS % (AUTO) 0.6 % (0-1); EOSINOPHILS # (AUTO) 0.1 X10'3 (0-0.9); EOSINOPHILS % (AUTO) 1.7 % (0-6); HEMATOCRIT 43.3 % (42.0-52.0); HEMOGLOBIN 14.7 g/dl (14.0-17.9); LYMPHOCYTES # (AUTO) 1.9 X10'3 (1.1-4.8); LYMPHOCYTES % (AUTO) 31.8 % (21-51); MEAN CORPUSCULAR HEMOGLOBIN 30.8 PG (27.0-31.0); MEAN CORPUSCULAR VOLUME 90.8 FL (78-98); MEAN PLATELET VOLUME 7.6 FL (7.4-10.4); MONOCYTES # (AUTO) 0.5 X10'3 (0-0.9); MONOCYTES % (AUTO) 8.5 % (2-12); NEUTROPHILS # (AUTO) 3.4 X10'3 (1.8-7.7); NEUTROPHILS % (AUTO) 57.4 % (42-75); PLATELET COUNT 208 X10'3 (140-440); RED BLOOD COUNT 4.77 X10'6 (4.70-6.10); RED CELL DISTRIBUTION WIDTH 14.3 % (11.5-14.5)
[2019-05-27] MEDS: tamsulosin 0.4mg capsule PO SCH (08:21)
[2019-05-27] MEDS: isosorbide mononitrate 30mg tab.SR.24H PO SCH (08:21)
[2019-05-27] MEDS: gabapentin 300mg capsule PO SCH ×2 (08:21→21:27)
[2019-05-27] MEDS: carbidoba-levodopa 25-100mg tablet PO SCH ×5 (08:21→22:00)
[2019-05-27] MEDS: folic acid 0.4mg tablet PO SCH (08:21)
[2019-05-27] MEDS: atorvastatin 20mg tablet PO SCH ×2 (08:21→21:28)
[2019-05-27] MEDS: clopidogrel 75mg tablet PO SCH (08:22)
[2019-05-27] MEDS: heparin, porcine 5000 units/ml vial SQ SCH ×2 (08:22→21:28)
[2019-05-27] MEDS: pantoprazole 40mg Tablet.DR PO SCH (08:24)
[2019-05-27 08:32] LABS: ALANINE AMINOTRANSFERASE 19 U/L (12-78); ALBUMIN 3.6 G/DL (3.4-5.0); ALBUMIN/GLOBULIN RATIO 1.2 (1.1-1.5); ALKALINE PHOSPHATASE 54 IU/L (46-116); ANION GAP 6 (8-16); ASPARTATE AMINO TRANSFERASE 16 U/L (10-37); BILIRUBIN,TOTAL 0.6 MG/DL (0.1-1.0); BLOOD UREA NITROGEN 15 MG/DL (7-18); CALCIUM 8.5 MG/DL (8.5-10.1); CHLORIDE 107 MMOL/L (99-107); GLUCOSE 101 MG/DL (70-104); MAGNESIUM 1.7 MG/DL (1.5-2.4); POTASSIUM 4.2 MMOL/L (3.5-5.1); SODIUM 144 MMOL/L (135-145); TOTAL CARBON DIOXIDE 30.6 MMOL/L (24-32); TOTAL PROTEIN 6.6 G/DL (6.4-8.2); eGFR 71 ML/MIN
[2019-05-27 08:53] LABS: HEMOGLOBIN A1C 6.4 % (4.5-6.2)
[2019-05-27 10:00] VITALS: BP 113/64
--- NOTE | 2019-05-27 12:31 | NUR ---
DM Consult: A1C <7 and not appropriate for DM ed at this time. Addendum: 05/27/19 at [address] Amended: Links added.
[2019-05-27] MEDS ORDERED: ipratropium/albuterol 3ml nebule NEB PRN (16:15)
[2019-05-27 18:55] VITALS: BP 106/64
[2019-05-28 06:00] VITALS: BP 152/89
[2019-05-28 06:39] LABS: BASOPHILS % (AUTO) 0.7 % (0-1); EOSINOPHILS # (AUTO) 0.1 X10'3 (0-0.9); EOSINOPHILS % (AUTO) 2.3 % (0-6); HEMATOCRIT 43.2 % (42.0-52.0); HEMOGLOBIN 14.5 g/dl (14.0-17.9); LYMPHOCYTES % (AUTO) 39.1 % (21-51); MEAN CORPUSCULAR HEMOGLOBIN 30.8 PG (27.0-31.0); MEAN CORPUSCULAR HGB CONC 33.6 g/dL (33.0-36.5); MEAN CORPUSCULAR VOLUME 91.5 FL (78-98); MEAN PLATELET VOLUME 7.4 FL (7.4-10.4); MONOCYTES # (AUTO) 0.5 X10'3 (0-0.9); MONOCYTES % (AUTO) 9.3 % (2-12); NEUTROPHILS # (AUTO) 2.5 X10'3 (1.8-7.7); NEUTROPHILS % (AUTO) 48.6 % (42-75); PLATELET COUNT 202 X10'3 (140-440); RED BLOOD COUNT 4.72 X10'6 (4.70-6.10); RED CELL DISTRIBUTION WIDTH 14.1 % (11.5-14.5); WHITE BLOOD COUNT 5.1 X10'3 (4.5-11.0)
[2019-05-28 07:17] LABS: ALANINE AMINOTRANSFERASE 10 U/L (12-78); ALBUMIN 3.5 G/DL (3.4-5.0); ALBUMIN/GLOBULIN RATIO 1.2 (1.1-1.5); ALKALINE PHOSPHATASE 54 IU/L (46-116); ANION GAP 8 (8-16); ASPARTATE AMINO TRANSFERASE 15 U/L (10-37); BILIRUBIN,TOTAL 0.8 MG/DL (0.1-1.0); BLOOD UREA NITROGEN 12 MG/DL (7-18); BUN/CREATININE RATIO 12.5 (5.4-32.0); CALCIUM 8.6 MG/DL (8.5-10.1); CHLORIDE 106 MMOL/L (99-107); CREATININE 0.96 MG/DL (0.60-1.10); GLUCOSE 119 MG/DL (70-104); SODIUM 142 MMOL/L (135-145); TOTAL CARBON DIOXIDE 27.7 MMOL/L (24-32); TOTAL PROTEIN 6.5 G/DL (6.4-8.2); eGFR 74 ML/MIN
[2019-05-28] MEDS: atorvastatin 20mg tablet PO SCH (07:56)
[2019-05-28] MEDS: folic acid 0.4mg tablet PO SCH (07:56)
[2019-05-28] MEDS: pantoprazole 40mg Tablet.DR PO SCH (07:57)
[2019-05-28] MEDS: isosorbide mononitrate 30mg tab.SR.24H PO SCH (07:57)
[2019-05-28] MEDS: gabapentin 300mg capsule PO SCH (07:57)
[2019-05-28] MEDS: carbidoba-levodopa 25-100mg tablet PO SCH ×2 (07:57→11:20)
[2019-05-28] MEDS: tamsulosin 0.4mg capsule PO SCH (07:57)
[2019-05-28] MEDS: clopidogrel 75mg tablet PO SCH (07:57)
[2019-05-28] MEDS: heparin, porcine 5000 units/ml vial SQ SCH (07:58)
[2019-05-28 09:00] VITALS: BP 124/69
[2019-05-28 09:10] VITALS: BP 115/68
[2019-05-28 09:20] VITALS: BP 100/54
[2019-05-28 10:00] VITALS: BP 124/69
--- NOTE | 2019-05-28 13:23 | NUR ---
DISCHARGE at 1245. All necessary documents signed/packet sent w/pt and pt POA (ex is POA). All necessary/ordered procedures completed, Interpretted. Dr lashawn cazares DC. transferred back to [facility]. Transferred safely into personal vehicle.
== END 2019-05-28 12:45 | disposition home or self-care (01) | DRG 74 ==
LOC: ER 17:53 → EDBEDREQ 22:34 → EDBEDREQSVC 05-27 01:31 → ORTHO 4S 05-27 01:51
PROVIDERS: ADMIT Internal Medicine; ATTEND Family Medicine
DX: G90.9 Disorder of the autonomic nervous system, unspecified (principal); G20 Parkinson's disease; E11.9 Type 2 diabetes mellitus without complications; F02.80 Dementia in other diseases classified elsewhere, unspecified severity, without behavioral disturbance, psychotic disturbance, mood disturbance, and anxiety; I10 Essential (primary) hypertension; Z60.2 Problems related to living alone; I25.10 Atherosclerotic heart disease of native coronary artery without angina pectoris; I49.3 Ventricular premature depolarization; J44.9 Chronic obstructive pulmonary disease, unspecified; G89.29 Other chronic pain; M54.9 Dorsalgia, unspecified; K21.9 Gastro-esophageal reflux disease without esophagitis; Z79.02 Long term (current) use of antithrombotics/antiplatelets; I25.2 Old myocardial infarction; Z79.84 Long term (current) use of oral hypoglycemic drugs; Z95.1 Presence of aortocoronary bypass graft; Z88.5 Allergy status to narcotic agent; Z95.5 Presence of coronary angioplasty implant and graft; Z79.899 Other long term (current) drug therapy
CPT/HCPCS: 36415; 70450; 71045; 80053; 81003; 82948; 83036; 83735; 84484; 85025; 87081; 93005; 93306; 93880; 94760; 99285; G0378; J1644; J1815

== ENCOUNTER 2019-05-29 20:29 | Inpatient (IN) | payer MEDICARE, OTHER ==
[~2019-05-29] VITALS: Ht 181.6 cm; Wt 81.0 kg
[~2019-05-29 20:29] MED LIST changes: +ATOR40TA PO; -BISA-155 PO; +CHOL10002 PO; -CHOL100046 PO; +CLOP75TA35 PO; +ISOS30TA6 PO; -NITR0.4T51 SL; -OMEP40CA13 PO; +PANT-47 PO
[2019-05-29] MEDS ORDERED: normal saline 1000ML IV soln IV ONE (21:10)
--- NOTE | 2019-05-29 21:21 | NUR ---
PT UP TO BS COMMODE PER HIS REQUEST
--- NOTE | 2019-05-29 21:23 | NUR ---
I WAS TOO LATE TO GET THE URINE, HE SAYS THAT HE IS CONSTIPATED AND WILL BE IN NEED OF A LAXATIVE SO HE CAN GO TONIGHT OR IN THE MORNING.
[2019-05-29 21:26] LABS: BASOPHILS % (AUTO) 0.7 % (0-1); EOSINOPHILS # (AUTO) 0.1 X10'3 (0-0.9); HEMATOCRIT 42.3 % (42.0-52.0); HEMOGLOBIN 13.8 g/dl (14.0-17.9); LYMPHOCYTES # (AUTO) 2.1 X10'3 (1.1-4.8); LYMPHOCYTES % (AUTO) 40.4 % (21-51); MEAN CORPUSCULAR HEMOGLOBIN 30.3 PG (27.0-31.0); MEAN CORPUSCULAR HGB CONC 32.7 g/dL (33.0-36.5); MEAN CORPUSCULAR VOLUME 92.7 FL (78-98); MONOCYTES # (AUTO) 0.5 X10'3 (0-0.9); MONOCYTES % (AUTO) 10.4 % (2-12); NEUTROPHILS # (AUTO) 2.4 X10'3 (1.8-7.7); NEUTROPHILS % (AUTO) 46.5 % (42-75); PLATELET COUNT 194 X10'3 (140-440); RED BLOOD COUNT 4.57 X10'6 (4.70-6.10); RED CELL DISTRIBUTION WIDTH 14.7 % (11.5-14.5); WHITE BLOOD COUNT 5.2 X10'3 (4.5-11.0)
[2019-05-29 21:40] LABS: ALANINE AMINOTRANSFERASE 18 U/L (12-78); ALBUMIN 3.6 G/DL (3.4-5.0); ALBUMIN/GLOBULIN RATIO 1.2 (1.1-1.5); ALKALINE PHOSPHATASE 56 IU/L (46-116); ANION GAP 9 (8-16); ASPARTATE AMINO TRANSFERASE 4 U/L (10-37); BILIRUBIN,TOTAL 0.5 MG/DL (0.1-1.0); BLOOD UREA NITROGEN 18 MG/DL (7-18); BUN/CREATININE RATIO 16.1 (5.4-32.0); CALCIUM 8.5 MG/DL (8.5-10.1); CHLORIDE 107 MMOL/L (99-107); CREATININE 1.12 MG/DL (0.60-1.10); GLUCOSE 181 MG/DL (70-104); POTASSIUM 4.1 MMOL/L (3.5-5.1); SODIUM 143 MMOL/L (135-145); TOTAL CARBON DIOXIDE 27.4 MMOL/L (24-32); TOTAL PROTEIN 6.7 G/DL (6.4-8.2); eGFR 62 ML/MIN
[2019-05-29 21:46] LABS: MAGNESIUM 1.8 MG/DL (1.5-2.4); PHOSPHORUS 3.4 MG/DL (2.3-4.5)
--- NOTE | 2019-05-29 23:00 | NUR ---
I had him standing bedside for over 5 minutes and he is not able to start his urine flow. made aware. Infomed to straight cath
--- NOTE | 2019-05-29 23:07 | NUR ---
pt refused catheter.
[2019-05-29] MEDS ORDERED: LIDOcaine 2% 10ml TOPICAL JELLY (Urojet) MM STA (23:15)
[2019-05-29 23:30] LABS: CLARITY,URINE CLEAR (Clear); COLOR,URINE YELLOW (Yellow); GLUCOSE, URINE NEGATIVE (Neg); KETONES,URINE NEGATIVE (Neg); LEUKOCYTE ESTERASE ,URINE NEGATIVE (Neg); NITRITES, URINE NEGATIVE (Neg); OCCULT BLOOD,URINE NEGATIVE (Neg); PROTEIN,URINE NEGATIVE (Neg)
[2019-05-29 23:33] LABS: UA COLLECTION TYPE OTHER
[2019-05-30] MEDS ORDERED: magnesium hydroxide 30ml (MOM) UD suspension PO PRN (00:45)
[2019-05-30] MEDS ORDERED: ondansetron/PF 4mg/2ml inj IV PRN (00:45)
[2019-05-30] MEDS ORDERED: mag hydrox/Alum hydrox/simeth 30ml oral suspension PO PRN (00:45)
[2019-05-30 02:00] VITALS: BP 170/86
--- NOTE | 2019-05-30 02:00 | NUR ---
Report rec'd from felicity Mcgarry in ED. Pt up to floor at this time via gurney and one attendant, transferred to bed via slide board and three attendants. VSS, will continue to monitor.
[2019-05-30 06:00] VITALS: BP 162/85
--- NOTE | 2019-05-30 06:39 | NUR ---
Report given to felicity Gu.
--- NOTE | 2019-05-30 06:53 | NUR ---
Patient in room ORTHO 4009. I have received report from Alecia DODD and had the opportunity to ask questions and assume patient care.
[2019-05-30] MEDS: carbidoba-levodopa 25-100mg tablet PO SCH ×5 (07:30→22:04)
[2019-05-30] MEDS ORDERED: potassium CL 10mEq/100ml bag 100 ML IV PRN (09:00)
[2019-05-30] MEDS ORDERED: potassium Cl 20 mEq SR tablet PO PRN ×2 (09:00)
[2019-05-30] MEDS ORDERED: magnesium 4gm in 100ml NS 100 ML IV PRN (09:00)
[2019-05-30] MEDS: vitamin D (cholecalciferol) 1,000 unit tablet PO SCH (09:36)
[2019-05-30] MEDS: heparin, porcine 5000 units/ml vial SQ SCH ×2 (09:36→20:22)
[2019-05-30] MEDS: pantoprazole 40mg Tablet.DR PO SCH (09:36)
[2019-05-30] MEDS: clopidogrel 75mg tablet PO SCH (09:36)
[2019-05-30] MEDS: atorvastatin 20mg tablet PO SCH ×2 (09:36→20:21)
[2019-05-30] MEDS: gabapentin 300mg capsule PO SCH ×2 (09:36→20:21)
[2019-05-30] MEDS: isosorbide mononitrate 30mg tab.SR.24H PO SCH (09:36)
[2019-05-30] MEDS: folic acid 0.4mg tablet PO SCH (09:37)
[2019-05-30] MEDS: tamsulosin 0.4mg capsule PO SCH (09:37)
[2019-05-30] MEDS: metFORMIN 500mg tablet PO SCH ×2 (09:37→20:21)
[2019-05-30 10:00] VITALS: BP 128/56
[2019-05-30 18:00] VITALS: BP 119/71
--- NOTE | 2019-05-30 18:42 | NUR ---
Problems reprioritized. Patient report given, questions answered & plan of care reviewed with DONALD DODD.
[2019-05-30 22:00] VITALS: BP_SYST 125; BP_SYST 81; BP_SYST 90; BP_DIAS 51; BP_DIAS 55; BP_DIAS 61
[2019-05-31 05:00] VITALS: BP 115/65
[2019-05-31 06:12] LABS: BASOPHILS % (AUTO) 0.6 % (0-1); EOSINOPHILS # (AUTO) 0.1 X10'3 (0-0.9); EOSINOPHILS % (AUTO) 2.1 % (0-6); HEMATOCRIT 38.4 % (42.0-52.0); HEMOGLOBIN 13.1 g/dl (14.0-17.9); LYMPHOCYTES # (AUTO) 1.9 X10'3 (1.1-4.8); LYMPHOCYTES % (AUTO) 30.9 % (21-51); MEAN CORPUSCULAR HEMOGLOBIN 31.2 PG (27.0-31.0); MEAN CORPUSCULAR VOLUME 91.8 FL (78-98); MEAN PLATELET VOLUME 7.9 FL (7.4-10.4); MONOCYTES # (AUTO) 0.5 X10'3 (0-0.9); MONOCYTES % (AUTO) 7.4 % (2-12); NEUTROPHILS # (AUTO) 3.7 X10'3 (1.8-7.7); PLATELET COUNT 184 X10'3 (140-440); RED BLOOD COUNT 4.18 X10'6 (4.70-6.10); RED CELL DISTRIBUTION WIDTH 14.2 % (11.5-14.5); WHITE BLOOD COUNT 6.2 X10'3 (4.5-11.0)
--- NOTE | 2019-05-31 06:15 | NUR ---
Patient in room ORTHO 4009. I have received report from DONALD DODD and had the opportunity to ask questions and assume patient care.
--- NOTE | 2019-05-31 06:27 | NUR ---
REPORT GIVEN TO JU MARISCAL. AND JU HARPER.
[2019-05-31 06:37] LABS: ALANINE AMINOTRANSFERASE 10 U/L (12-78); ALBUMIN 3.3 G/DL (3.4-5.0); ALBUMIN/GLOBULIN RATIO 1.2 (1.1-1.5); ALKALINE PHOSPHATASE 50 IU/L (46-116); ANION GAP 10 (8-16); ASPARTATE AMINO TRANSFERASE 15 U/L (10-37); BILIRUBIN,TOTAL 0.5 MG/DL (0.1-1.0); BLOOD UREA NITROGEN 21 MG/DL (7-18); BUN/CREATININE RATIO 19.3 (5.4-32.0); CALCIUM 8.1 MG/DL (8.5-10.1); CHLORIDE 108 MMOL/L (99-107); CREATININE 1.09 MG/DL (0.60-1.10); GLUCOSE 122 MG/DL (70-104); MAGNESIUM 1.6 MG/DL (1.5-2.4); PHOSPHORUS 3.2 MG/DL (2.3-4.5); POTASSIUM 4.1 MMOL/L (3.5-5.1); SODIUM 143 MMOL/L (135-145); TOTAL CARBON DIOXIDE 24.8 MMOL/L (24-32); eGFR 64 ML/MIN
--- NOTE | 2019-05-31 06:46 | NUR ---
Patient in room ORTHO 4009. I have received report from Alecia DODD and had the opportunity to ask questions and assume patient care.
[2019-05-31] MEDS: pantoprazole 40mg Tablet.DR PO SCH (07:10)
[2019-05-31] MEDS: carbidoba-levodopa 25-100mg tablet PO SCH ×5 (07:10→21:46)
[2019-05-31] MEDS: heparin, porcine 5000 units/ml vial SQ SCH ×2 (07:10→19:59)
[2019-05-31] MEDS: gabapentin 300mg capsule PO SCH ×2 (07:10→19:57)
[2019-05-31] MEDS: isosorbide mononitrate 30mg tab.SR.24H PO SCH (07:11)
[2019-05-31] MEDS: vitamin D (cholecalciferol) 1,000 unit tablet PO SCH (07:11)
[2019-05-31] MEDS: tamsulosin 0.4mg capsule PO SCH (07:11)
[2019-05-31] MEDS: metFORMIN 500mg tablet PO SCH ×2 (07:11→19:56)
[2019-05-31] MEDS: atorvastatin 20mg tablet PO SCH ×2 (07:11→19:57)
[2019-05-31] MEDS: clopidogrel 75mg tablet PO SCH (07:11)
[2019-05-31] MEDS: folic acid 0.4mg tablet PO SCH (07:11)
[2019-05-31 10:00] VITALS: BP 91/46
[2019-05-31] MEDS: midodrine 5mg tablet PO SCH ×2 (12:44→16:31)
[2019-05-31 14:00] VITALS: BP_SYST 101; BP_SYST 111; BP_DIAS 54; BP_DIAS 55
[2019-05-31] MEDS: acetaminophen 325mg tablet PO PRN (17:34)
--- NOTE | 2019-05-31 17:58 | NUR ---
I AGREE WITH MY PRECEPTEE LEROY DODD'S CHARTING.
[2019-05-31 18:00] VITALS: BP 145/85
--- NOTE | 2019-05-31 18:14 | NUR ---
Problems reprioritized. Patient report given, questions answered & plan of care reviewed with Aishwarya DODD.
[2019-05-31 20:00] VITALS: BP_SYST 140; BP_SYST 155; BP_SYST 158; BP_DIAS 73; BP_DIAS 80; BP_DIAS 83
[2019-05-31 22:00] VITALS: BP 136/74
[2019-06-01] VITALS (7 sets, daily range): BP systolic 73–157; BP diastolic 37–86
[2019-06-01] MEDS: acetaminophen 325mg tablet PO PRN ×2 (00:24→13:20)
[2019-06-01] MEDS: carbidoba-levodopa 25-100mg tablet PO SCH ×5 (05:50→22:19)
--- NOTE | 2019-06-01 06:18 | NUR ---
Patient in room ORTHO 4009. I have received report from MAGDY DODD AND ARTURO RN and had the opportunity to ask questions and assume patient care.
--- NOTE | 2019-06-01 06:24 | NUR ---
Patient in room ORTHO 4009. I have received report from Aishwarya RN, Anjelica RN and had the opportunity to ask questions and assume patient care.
--- NOTE | 2019-06-01 06:25 | NUR ---
Problems reprioritized. Patient report given, questions answered & plan of care reviewed with to Jessica DODD.
[2019-06-01 06:35] LABS: ALANINE AMINOTRANSFERASE 7 U/L (12-78); ALBUMIN 3.4 G/DL (3.4-5.0); ALBUMIN/GLOBULIN RATIO 1.1 (1.1-1.5); ALKALINE PHOSPHATASE 57 IU/L (46-116); ANION GAP 7 (8-16); ASPARTATE AMINO TRANSFERASE 10 U/L (10-37); BILIRUBIN,TOTAL 0.8 MG/DL (0.1-1.0); BLOOD UREA NITROGEN 16 MG/DL (7-18); BUN/CREATININE RATIO 16.5 (5.4-32.0); CALCIUM 8.3 MG/DL (8.5-10.1); CHLORIDE 107 MMOL/L (99-107); CREATININE 0.97 MG/DL (0.60-1.10); GLUCOSE 123 MG/DL (70-104); MAGNESIUM 1.3 MG/DL (1.5-2.4); PHOSPHORUS 2.8 MG/DL (2.3-4.5); SODIUM 141 MMOL/L (135-145); TOTAL CARBON DIOXIDE 26.7 MMOL/L (24-32); TOTAL PROTEIN 6.4 G/DL (6.4-8.2); eGFR 74 ML/MIN
[2019-06-01 06:41] LABS: BASOPHILS % (AUTO) 0.4 % (0-1); EOSINOPHILS # (AUTO) 0.1 X10'3 (0-0.9); EOSINOPHILS % (AUTO) 1.2 % (0-6); HEMATOCRIT 41.9 % (42.0-52.0); HEMOGLOBIN 14.3 g/dl (14.0-17.9); LYMPHOCYTES # (AUTO) 1.3 X10'3 (1.1-4.8); LYMPHOCYTES % (AUTO) 12.3 % (21-51); MEAN CORPUSCULAR HEMOGLOBIN 31.2 PG (27.0-31.0); MEAN CORPUSCULAR HGB CONC 34.1 g/dL (33.0-36.5); MEAN CORPUSCULAR VOLUME 91.6 FL (78-98); MONOCYTES # (AUTO) 0.8 X10'3 (0-0.9); MONOCYTES % (AUTO) 8.2 % (2-12); NEUTROPHILS % (AUTO) 77.9 % (42-75); PLATELET COUNT 191 X10'3 (140-440); RED BLOOD COUNT 4.58 X10'6 (4.70-6.10); RED CELL DISTRIBUTION WIDTH 14.1 % (11.5-14.5); WHITE BLOOD COUNT 10.3 X10'3 (4.5-11.0)
--- NOTE | 2019-06-01 07:13 | NUR ---
Shawn 5199 Re: Carlene. C/O right flank pain. Pt said hes been taking Ultram for pain at home. Can we restart Ultram?
[2019-06-01] MEDS: atorvastatin 20mg tablet PO SCH ×2 (08:09→19:55)
[2019-06-01] MEDS: tamsulosin 0.4mg capsule PO SCH (08:09)
[2019-06-01] MEDS: heparin, porcine 5000 units/ml vial SQ SCH ×2 (08:09→19:56)
[2019-06-01] MEDS: pantoprazole 40mg Tablet.DR PO SCH (08:09)
[2019-06-01] MEDS: vitamin D (cholecalciferol) 1,000 unit tablet PO SCH (08:09)
[2019-06-01] MEDS: gabapentin 300mg capsule PO SCH ×2 (08:09→19:55)
[2019-06-01] MEDS: folic acid 0.4mg tablet PO SCH (08:09)
[2019-06-01] MEDS: metFORMIN 500mg tablet PO SCH ×2 (08:10→19:55)
[2019-06-01] MEDS: magnesium Cl slow-release 64mg tablet PO PRN ×2 (08:10→20:21)
[2019-06-01] MEDS: clopidogrel 75mg tablet PO SCH (08:10)
[2019-06-01] MEDS: midodrine 5mg tablet PO SCH ×3 (08:10→15:37)
[2019-06-01] MEDS: isosorbide mononitrate 30mg tab.SR.24H PO SCH (08:10)
[2019-06-01] MEDS ORDERED: traMADol 50MG tablet PO PRN (10:20)
--- NOTE | 2019-06-01 18:12 | NUR ---
Problems reprioritized. Patient report given, questions answered & plan of care reviewed with Aishwarya DODD.
--- NOTE | 2019-06-01 18:13 | NUR ---
I AGREE WITH MY PRECEPTOR LEROY DODD'S CHARTING.
[2019-06-02 06:00] VITALS: BP 113/72
[2019-06-02 06:01] LABS: BASOPHILS % (AUTO) 0.5 % (0-1); EOSINOPHILS # (AUTO) 0.1 X10'3 (0-0.9); EOSINOPHILS % (AUTO) 1.2 % (0-6); HEMATOCRIT 40.8 % (42.0-52.0); LYMPHOCYTES # (AUTO) 1.9 X10'3 (1.1-4.8); LYMPHOCYTES % (AUTO) 23.6 % (21-51); MEAN CORPUSCULAR HEMOGLOBIN 31.4 PG (27.0-31.0); MEAN CORPUSCULAR HGB CONC 34.4 g/dL (33.0-36.5); MEAN CORPUSCULAR VOLUME 91.3 FL (78-98); MEAN PLATELET VOLUME 8.3 FL (7.4-10.4); MONOCYTES # (AUTO) 0.7 X10'3 (0-0.9); MONOCYTES % (AUTO) 8.5 % (2-12); NEUTROPHILS # (AUTO) 5.3 X10'3 (1.8-7.7); NEUTROPHILS % (AUTO) 66.2 % (42-75); PLATELET COUNT 199 X10'3 (140-440); RED BLOOD COUNT 4.47 X10'6 (4.70-6.10); RED CELL DISTRIBUTION WIDTH 14.3 % (11.5-14.5); WHITE BLOOD COUNT 8.1 X10'3 (4.5-11.0)
--- NOTE | 2019-06-02 06:19 | NUR ---
Problems reprioritized. Patient report given, questions answered & plan of care reviewed with Mary RN.
[2019-06-02 06:32] LABS: ALANINE AMINOTRANSFERASE 15 U/L (12-78); ALBUMIN 3.3 G/DL (3.4-5.0); ALBUMIN/GLOBULIN RATIO 1.1 (1.1-1.5); ALKALINE PHOSPHATASE 55 IU/L (46-116); ANION GAP 10 (8-16); ASPARTATE AMINO TRANSFERASE 22 U/L (10-37); BILIRUBIN,TOTAL 0.9 MG/DL (0.1-1.0); BLOOD UREA NITROGEN 20 MG/DL (7-18); BUN/CREATININE RATIO 21.5 (5.4-32.0); CALCIUM 8.2 MG/DL (8.5-10.1); CHLORIDE 106 MMOL/L (99-107); CREATININE 0.93 MG/DL (0.60-1.10); GLUCOSE 109 MG/DL (70-104); MAGNESIUM 1.4 MG/DL (1.5-2.4); POTASSIUM 4.2 MMOL/L (3.5-5.1); SODIUM 140 MMOL/L (135-145); TOTAL CARBON DIOXIDE 23.6 MMOL/L (24-32); TOTAL PROTEIN 6.4 G/DL (6.4-8.2); eGFR 77 ML/MIN
--- NOTE | 2019-06-02 06:32 | NUR ---
Patient in room ORTHO 4009. I have received report from Aishwarya DODD and had the opportunity to ask questions and assume patient care.
[2019-06-02 08:00] VITALS: BP_SYST 100; BP_SYST 109; BP_SYST 115; BP_DIAS 62; BP_DIAS 67
[2019-06-02] MEDS: pantoprazole 40mg Tablet.DR PO SCH (08:17)
[2019-06-02] MEDS: isosorbide mononitrate 30mg tab.SR.24H PO SCH (08:17)
[2019-06-02] MEDS: carbidoba-levodopa 25-100mg tablet PO SCH ×2 (08:18→10:06)
[2019-06-02] MEDS: midodrine 5mg tablet PO SCH ×2 (08:18→12:37)
[2019-06-02] MEDS: clopidogrel 75mg tablet PO SCH (08:18)
[2019-06-02] MEDS: vitamin D (cholecalciferol) 1,000 unit tablet PO SCH (08:18)
[2019-06-02] MEDS: folic acid 0.4mg tablet PO SCH (08:18)
[2019-06-02] MEDS: tamsulosin 0.4mg capsule PO SCH (08:18)
[2019-06-02] MEDS: gabapentin 300mg capsule PO SCH (08:18)
[2019-06-02] MEDS: heparin, porcine 5000 units/ml vial SQ SCH (08:19)
[2019-06-02] MEDS: atorvastatin 20mg tablet PO SCH (08:19)
[2019-06-02] MEDS: metFORMIN 500mg tablet PO SCH (08:19)
[2019-06-02] MEDS: magnesium Cl slow-release 64mg tablet PO PRN (08:21)
[2019-06-02 10:00] VITALS: BP 110/56
--- NOTE | 2019-06-02 13:54 | NUR ---
Pt left with transfer personnel to [facility]. All items and materials with patient. Addendum: 06/02/19 at 1723 by Shawn Infante RN Family notified of transfer
--- NOTE | 2019-06-02 14:00 | NUR ---
I AGREE WITH MY PRECEPTEE LEROY DODD'S CHARTING.
== END 2019-06-02 13:55 | DRG 57 ==
LOC: ER 20:29 → ORTHO 4S 05-30 01:39 → CMPBEDREQ 05-30 01:43
PROVIDERS: ADMIT Internal Medicine; ATTEND Family Medicine
DX: G20 Parkinson's disease (principal); I95.1 Orthostatic hypotension; F02.80 Dementia in other diseases classified elsewhere, unspecified severity, without behavioral disturbance, psychotic disturbance, mood disturbance, and anxiety; F45.8 Other somatoform disorders; E78.5 Hyperlipidemia, unspecified; E11.40 Type 2 diabetes mellitus with diabetic neuropathy, unspecified; G89.4 Chronic pain syndrome; H91.10 Presbycusis, unspecified ear; I10 Essential (primary) hypertension; I25.10 Atherosclerotic heart disease of native coronary artery without angina pectoris; J44.9 Chronic obstructive pulmonary disease, unspecified; Z60.2 Problems related to living alone; K21.9 Gastro-esophageal reflux disease without esophagitis; Z66 Do not resuscitate; N40.0 Benign prostatic hyperplasia without lower urinary tract symptoms; M54.9 Dorsalgia, unspecified; Z95.0 Presence of cardiac pacemaker; Z88.6 Allergy status to analgesic agent; I25.2 Old myocardial infarction; Z95.1 Presence of aortocoronary bypass graft; Z88.8 Allergy status to other drugs, medicaments and biological substances; Z79.899 Other long term (current) drug therapy; Z79.84 Long term (current) use of oral hypoglycemic drugs
CPT/HCPCS: 36415; 70450; 71045; 80053; 81003; 83735; 84100; 84484; 85025; 87081; 97110; 97116; 97162; 97530; 97535; 99285; G0378; J1644

== ENCOUNTER 2019-09-15 18:39 | Emergency (ER) | payer MEDICARE, OTHER ==
[~2019-09-15] VITALS: Ht 185.4 cm; Wt 95.0 kg
[2019-09-15] MEDS ORDERED: LORazepam 1 MG tablet PO ONE (20:15)
[2019-09-15 20:56] LABS: BASOPHILS # (AUTO) 0.1 X10'3 (0-0.2); BASOPHILS % (AUTO) 0.5 % (0-1); EOSINOPHILS # (AUTO) 0.2 X10'3 (0-0.9); EOSINOPHILS % (AUTO) 2.4 % (0-6); HEMATOCRIT 36.2 % (42.0-52.0); HEMOGLOBIN 12.4 g/dl (14.0-17.9); LYMPHOCYTES # (AUTO) 1.9 X10'3 (1.1-4.8); LYMPHOCYTES % (AUTO) 18.7 % (21-51); MEAN CORPUSCULAR HGB CONC 34.2 g/dL (33.0-36.5); MEAN CORPUSCULAR VOLUME 93.5 FL (78-98); MEAN PLATELET VOLUME 8.6 FL (7.4-10.4); MONOCYTES # (AUTO) 0.7 X10'3 (0-0.9); MONOCYTES % (AUTO) 7.3 % (2-12); NEUTROPHILS # (AUTO) 7.2 X10'3 (1.8-7.7); NEUTROPHILS % (AUTO) 71.1 % (42-75); PLATELET COUNT 208 X10'3 (140-440); RED BLOOD COUNT 3.87 X10'6 (4.70-6.10); RED CELL DISTRIBUTION WIDTH 16.2 % (11.5-14.5); WHITE BLOOD COUNT 10.1 X10'3 (4.5-11.0)
[2019-09-15 21:06] LABS: PARTIAL THROMBOPLASTIN TIME 29 SECONDS (22-32)
[2019-09-15 21:15] LABS: ALANINE AMINOTRANSFERASE 17 U/L (12-78); ALBUMIN 3.4 G/DL (3.4-5.0); ALBUMIN/GLOBULIN RATIO 1.1 (1.1-1.5); ALKALINE PHOSPHATASE 56 IU/L (46-116); ANION GAP 6 (8-16); ASPARTATE AMINO TRANSFERASE 13 U/L (10-37); BILIRUBIN,TOTAL 0.9 MG/DL (0.1-1.0); BLOOD UREA NITROGEN 19 MG/DL (7-18); BUN/CREATININE RATIO 19.2 (5.4-32.0); CALCIUM 8.4 MG/DL (8.5-10.1); CHLORIDE 105 MMOL/L (99-107); CREATININE 0.99 MG/DL (0.60-1.10); GLUCOSE 115 MG/DL (70-104); SODIUM 139 MMOL/L (135-145); TOTAL CARBON DIOXIDE 28.1 MMOL/L (24-32); TOTAL PROTEIN 6.6 G/DL (6.4-8.2); eGFR 72 ML/MIN
[2019-09-15 22:27] LABS: CLARITY,URINE CLOUDY (Clear); COLOR,URINE YELLOW (Yellow); GLUCOSE, URINE NEGATIVE (Neg); KETONES,URINE NEGATIVE (Neg); LEUKOCYTE ESTERASE ,URINE LARGE (Neg); NITRITES, URINE POSITIVE (Neg); OCCULT BLOOD,URINE TRACE-INTACT (Neg); PROTEIN,URINE NEGATIVE (Neg)
[2019-09-15 22:29] LABS: UA COLLECTION TYPE FOLEY CATH
[2019-09-15 22:44] LABS: WBC,URINE TNTC /HPF (0-4)
[2019-09-15 22:45] LABS: BACTERIA,URINE 3+ /HPF (Neg); MUCUS STRANDS FEW /LPF (Neg); RBC,URINE 0-2 /HPF (0-2); SQUAMOUS EPITHELIAL CELL,UR NONE SEEN /LPF (FEW)
[2019-09-15] MEDS ORDERED: CefTRIAXone/D5W-Rocephin 1gm 50 ML IV ONE (22:50)
[2019-09-15] MEDS ORDERED: CEPH500C5 PO (22:52)
--- NOTE | 2019-09-15 23:20 | NUR ---
CALLED [facility] FOR TRANSPORTATION HOME. WILL BE HERE IN 30-35 MINUTES.
[2019-09-15 23:44] VITALS: BP 123/64
== END 2019-09-16 00:22 | disposition home or self-care (01) ==
LOC: ER 18:40
DX: N39.0 Urinary tract infection, site not specified (principal); G93.41 Metabolic encephalopathy; R41.0 Disorientation, unspecified; F03.90 Unspecified dementia, unspecified severity, without behavioral disturbance, psychotic disturbance, mood disturbance, and anxiety; G20 Parkinson's disease; I25.10 Atherosclerotic heart disease of native coronary artery without angina pectoris; I10 Essential (primary) hypertension; I25.2 Old myocardial infarction; J44.9 Chronic obstructive pulmonary disease, unspecified; K21.9 Gastro-esophageal reflux disease without esophagitis; E11.9 Type 2 diabetes mellitus without complications; G89.29 Other chronic pain; Z95.1 Presence of aortocoronary bypass graft; Z95.0 Presence of cardiac pacemaker; Z88.6 Allergy status to analgesic agent; Z88.5 Allergy status to narcotic agent; Z79.899 Other long term (current) drug therapy
CPT/HCPCS: 36415; 70450; 71045; 80053; 81001; 82948; 85025; 85610; 85730; 87077; 87088; 87186; 93005; 96365; 99284; J0696

== ENCOUNTER 2022-02-03 13:27 | Emergency (ER) | payer MEDICARE, OTHER ==
[~2022-02-03] VITALS: Ht 188 cm; Wt 83.0 kg
[~2022-02-03 13:27] MED LIST changes: +CLOP75TA34 PO; -CLOP75TA35 PO; -FOLI0.4T2 PO; +FOLI0.4T6 PO; -ISOS30TA6 PO; +ISOS30TA84 PO
[2022-02-03] MEDS ORDERED: normal saline 1000ML IV soln IVB ONE (14:25)
[2022-02-03 14:49] LABS: BASOPHILS % (AUTO) 0.7 % (0-1); EOSINOPHILS % (AUTO) 0.4 % (0-6); HEMATOCRIT 35.5 % (42.0-52.0); HEMOGLOBIN 11.4 g/dl (14.0-17.9); LYMPHOCYTES # (AUTO) 2.1 X10'3 (1.1-4.8); LYMPHOCYTES % (AUTO) 30.1 % (21-51); MEAN CORPUSCULAR HEMOGLOBIN 25.7 PG (27.0-31.0); MEAN CORPUSCULAR HGB CONC 32.1 g/dL (33.0-36.5); MONOCYTES # (AUTO) 0.5 X10'3 (0-0.9); MONOCYTES % (AUTO) 7.4 % (2-12); NEUTROPHILS # (AUTO) 4.3 X10'3 (1.8-7.7); NEUTROPHILS % (AUTO) 61.4 % (42-75); PLATELET COUNT 245 X10'3 (140-440); RED BLOOD COUNT 4.44 X10'6 (4.70-6.10); RED CELL DISTRIBUTION WIDTH 18.2 % (11.5-14.5)
--- NOTE | 2022-02-03 16:13 | NUR ---
TC TO PATIENT'S SON, EULALIA AND [facility] FOR AUTHORIZATION TO TRANSPORT PATIENT BACK TO [facility]. [facility] IS USUALLY USED FOR TRANSPORT. TC TO [facility], BUT THEY ARE UNABLE TO PROVIDE TRANSPORTATION TODAY. CALL BACK TO [facility] FOR ALTERNATE TRANSPORTATION ARRANGEMENTS, AND ARE BEING INSTRUCTED TO CALL AMBULANCE SERVICE FOR TRANSPORTATION.
[2022-02-03 18:56] VITALS: BP 113/63
--- NOTE | 2022-02-03 20:19 | NUR ---
Report given to EMS for transfer
== END 2022-02-03 20:36 ==
LOC: ER 13:28
DX: E86.0 Dehydration (principal); K56.7 Ileus, unspecified; K59.00 Constipation, unspecified; I25.10 Atherosclerotic heart disease of native coronary artery without angina pectoris; I11.0 Hypertensive heart disease with heart failure; I25.2 Old myocardial infarction; J44.9 Chronic obstructive pulmonary disease, unspecified; E11.9 Type 2 diabetes mellitus without complications; G89.29 Other chronic pain; Z95.0 Presence of cardiac pacemaker; Z98.890 Other specified postprocedural states; Z60.2 Problems related to living alone; Z88.6 Allergy status to analgesic agent; Z88.5 Allergy status to narcotic agent; Z88.8 Allergy status to other drugs, medicaments and biological substances; Z79.899 Other long term (current) drug therapy
CPT/HCPCS: 36415; 71045; 85025; 99285; J7030

== ENCOUNTER 2022-06-29 14:17 | Emergency (ER) | payer MEDICARE, OTHER, MEDICAID ==
[~2022-06-29] VITALS: Ht 177.8 cm; Wt 72.7 kg
[~2022-06-29 14:17] MED LIST changes: +CARB-313 PO; -CARB1TAB23 PO
[2022-06-29 15:28] VITALS: BP 119/68
[2022-06-29 15:40] LABS: BASOPHILS % (AUTO) 0.5 % (0-1); EOSINOPHILS # (AUTO) 0.2 X10'3 (0-0.9); EOSINOPHILS % (AUTO) 3.2 % (0-6); HEMATOCRIT 36.4 % (42.0-52.0); HEMOGLOBIN 11.5 g/dl (14.0-17.9); LYMPHOCYTES % (AUTO) 27.8 % (21-51); MEAN CORPUSCULAR HEMOGLOBIN 26.5 PG (27.0-31.0); MEAN CORPUSCULAR HGB CONC 31.6 g/dL (33.0-36.5); MEAN CORPUSCULAR VOLUME 83.9 FL (78-98); MEAN PLATELET VOLUME 7.5 FL (7.4-10.4); MONOCYTES # (AUTO) 0.4 X10'3 (0-0.9); MONOCYTES % (AUTO) 6.4 % (2-12); NEUTROPHILS # (AUTO) 4.4 X10'3 (1.8-7.7); NEUTROPHILS % (AUTO) 62.1 % (42-75); PLATELET COUNT 237 X10'3 (140-440); RED BLOOD COUNT 4.34 X10'6 (4.70-6.10); RED CELL DISTRIBUTION WIDTH 16.1 % (11.5-14.5)
[2022-06-29 15:53] LABS: ALANINE AMINOTRANSFERASE 8 U/L (12-78); ALBUMIN 2.8 G/DL (3.4-5.0); ALBUMIN/GLOBULIN RATIO 0.7 (1.1-1.5); ALKALINE PHOSPHATASE 62 IU/L (46-116); ANION GAP 4 (8-16); ASPARTATE AMINO TRANSFERASE 12 U/L (10-37); BILIRUBIN,TOTAL 0.2 MG/DL (0.1-1.0); BLOOD UREA NITROGEN 17 MG/DL (7-18); BUN/CREATININE RATIO 22.4 (5.4-32.0); CALCIUM 8.2 MG/DL (8.5-10.1); CHLORIDE 104 MMOL/L (99-107); CREATININE 0.76 MG/DL (0.60-1.10); GLUCOSE 141 MG/DL (70-104); POTASSIUM 3.9 MMOL/L (3.5-5.1); SODIUM 139 MMOL/L (135-145); TOTAL CARBON DIOXIDE 31.5 MMOL/L (24-32); TOTAL PROTEIN 7.1 G/DL (6.4-8.2); eGFR > 90 ML/MIN
[2022-06-29] MEDS ORDERED: levoFLOXACIN 250mg tablet PO ONE (16:15)
[2022-06-29] MEDS ORDERED: LEVO-65 PO (16:31)
--- NOTE | 2022-06-29 16:33 | NUR ---
Report given to Kellen DODD at [facility] at this time, all questions and concerns addressed, states [facility] [employer] is to be called for transportation.
== END 2022-06-29 19:03 | disposition home or self-care (01) ==
LOC: ER 14:18
DX: J18.9 Pneumonia, unspecified organism (principal); G30.1 Alzheimer's disease with late onset; F02.B0 Dementia in other diseases classified elsewhere, moderate, without behavioral disturbance, psychotic disturbance, mood disturbance, and anxiety; I11.9 Hypertensive heart disease without heart failure; K21.9 Gastro-esophageal reflux disease without esophagitis; G89.29 Other chronic pain; M54.9 Dorsalgia, unspecified; E11.9 Type 2 diabetes mellitus without complications; Z88.6 Allergy status to analgesic agent; Z88.5 Allergy status to narcotic agent; Z79.899 Other long term (current) drug therapy
CPT/HCPCS: 36415; 71045; 80053; 84145; 85025; 99284

== ENCOUNTER 2022-07-04 14:38 | Emergency (ER) | payer MEDICARE, OTHER, MEDICAID ==
[~2022-07-04] VITALS: Ht 182.9 cm; Wt 77.0 kg
[~2022-07-04 14:38] MED LIST changes: +LEVO-65 PO
[2022-07-04] MEDS ORDERED: ipratropium/albuterol 3ml nebule NEB ONE (14:45)
[2022-07-04 15:14] VITALS: BP 105/64
[2022-07-04 15:20] LABS: BASOPHILS % (AUTO) 1.1 % (0-1); EOSINOPHILS # (AUTO) 0.1 X10'3 (0-0.9); EOSINOPHILS % (AUTO) 3.2 % (0-6); HEMATOCRIT 33.2 % (42.0-52.0); HEMOGLOBIN 11.1 g/dl (14.0-17.9); LYMPHOCYTES # (AUTO) 2.1 X10'3 (1.1-4.8); LYMPHOCYTES % (AUTO) 50.7 % (21-51); MEAN CORPUSCULAR HEMOGLOBIN 27.2 PG (27.0-31.0); MEAN CORPUSCULAR HGB CONC 33.3 g/dL (33.0-36.5); MEAN CORPUSCULAR VOLUME 81.5 FL (78-98); MEAN PLATELET VOLUME 7.7 FL (7.4-10.4); MONOCYTES # (AUTO) 0.3 X10'3 (0-0.9); MONOCYTES % (AUTO) 7.4 % (2-12); NEUTROPHILS # (AUTO) 1.5 X10'3 (1.8-7.7); NEUTROPHILS % (AUTO) 37.6 % (42-75); PLATELET COUNT 203 X10'3 (140-440); RED BLOOD COUNT 4.07 X10'6 (4.70-6.10); RED CELL DISTRIBUTION WIDTH 16.2 % (11.5-14.5); WHITE BLOOD COUNT 4.1 X10'3 (4.5-11.0)
[2022-07-04 15:44] LABS: ALBUMIN 2.7 G/DL (3.4-5.0); ALBUMIN/GLOBULIN RATIO 0.7 (1.1-1.5); ALKALINE PHOSPHATASE 61 IU/L (46-116); ANION GAP 6 (8-16); ASPARTATE AMINO TRANSFERASE 13 U/L (10-37); BILIRUBIN,TOTAL 0.5 MG/DL (0.1-1.0); BLOOD UREA NITROGEN 13 MG/DL (7-18); BUN/CREATININE RATIO 16.9 (5.4-32.0); CALCIUM 8.5 MG/DL (8.5-10.1); CHLORIDE 106 MMOL/L (99-107); CREATININE 0.77 MG/DL (0.60-1.10); GLUCOSE 99 MG/DL (70-104); POTASSIUM 4.1 MMOL/L (3.5-5.1); SODIUM 143 MMOL/L (135-145); TOTAL CARBON DIOXIDE 31.3 MMOL/L (24-32); TOTAL PROTEIN 6.7 G/DL (6.4-8.2); eGFR > 90 ML/MIN
[2022-07-04 15:57] LABS: ALANINE AMINOTRANSFERASE < 6 U/L (12-78)
[2022-07-04 16:23] LABS: CLARITY,URINE SLIGHTLY CLOUDY (Clear); COLOR,URINE YELLOW (Yellow); GLUCOSE, URINE NEGATIVE (Neg); KETONES,URINE NEGATIVE (Neg); LEUKOCYTE ESTERASE ,URINE TRACE (Neg); NITRITES, URINE NEGATIVE (Neg); OCCULT BLOOD,URINE MODERATE (Neg); PH,URINE 5.5 (4.8-8.0); PROTEIN,URINE NEGATIVE (Neg)
[2022-07-04 16:28] LABS: UA COLLECTION TYPE STRAIGHT CATH
[2022-07-04 16:29] LABS: WBC,URINE 50-100 /HPF (0-4)
[2022-07-04 16:30] LABS: BACTERIA,URINE FEW /HPF (Neg); MUCUS STRANDS MODERATE /LPF (Neg); SQUAMOUS EPITHELIAL CELL,UR FEW /LPF (FEW); YEAST MODERATE /HPF (NEGATIVE)
[2022-07-04 16:31] LABS: TRANSITIONAL EPI CELLS,URINE FEW /HPF; WBC CLUMPS,URINE FEW /HPF (NEGATIVE)
[2022-07-04] MEDS ORDERED: CEFD300C3 PO (16:31)
[2022-07-04] MEDS ORDERED: AZIT500T9 PO (16:31)
== END 2022-07-04 17:58 | disposition home or self-care (01) ==
LOC: ER 14:39
DX: R62.7 Adult failure to thrive (principal); E86.0 Dehydration; I25.10 Atherosclerotic heart disease of native coronary artery without angina pectoris; I10 Essential (primary) hypertension; I25.2 Old myocardial infarction; J44.9 Chronic obstructive pulmonary disease, unspecified; K21.9 Gastro-esophageal reflux disease without esophagitis; E11.9 Type 2 diabetes mellitus without complications; G89.29 Other chronic pain; Z87.01 Personal history of pneumonia (recurrent); Z95.0 Presence of cardiac pacemaker; Z98.890 Other specified postprocedural states; Z60.2 Problems related to living alone; Z88.5 Allergy status to narcotic agent; Z88.6 Allergy status to analgesic agent; Z88.8 Allergy status to other drugs, medicaments and biological substances; Z79.2 Long term (current) use of antibiotics; Z79.899 Other long term (current) drug therapy
CPT/HCPCS: 36415; 71045; 80053; 81001; 83605; 84145; 85025; 87040; 87088; 94640; 99284; J7030; 94760